=== PATIENT | male | born 1975 | race Caucasian/White ===

== ENCOUNTER 2017-06-17 18:20 | Emergency (ER) | payer OTHER ==
[2017-06-17 18:40] VITALS: BP 122/76; PULSE 84; TEMP 98.6; O2SAT 98
[2017-06-17] MEDS ORDERED: Lidocaine 2% Inj (20ml) INFIL ONE (19:59)
--- NOTE | 2017-06-17 19:59 | C.PDOC ---
History Of Present Illness Patient reports 1 week history of swollen painful mass to the right axilla. Denies fever, drainage, or trauma. Time Seen by Provider: 06/17/17 19:26 Chief Complaint (Nursing): Abnormal Skin Integrity History Per: Patient History/Exam Limitations: no limitations Onset/Duration Of Symptoms: Days (1 week ), Persistent Current Symptoms Are (Timing): Still Present Location Of Injury: Right: Arm (axilla ) Quality Of Symptoms: Painful Severity: Mild Pain Scale Rating Of: 7 Past Medical History Reviewed: Historical Data, Nursing Documentation, Vital Signs Vital Signs: Last Vital Signs Temp 98.6 F 06/17/17 18:37 Pulse 84 06/17/17 18:37 Resp 20 06/17/17 22:10 BP 122/76 06/17/17 18:37 Pulse Ox 98 06/17/17 21:31 Family History: States: Unknown Family Hx - Social History Hx Tobacco Use: No Hx Alcohol Use: No Hx Substance Use: No - Immunization History Hx Tetanus Toxoid Vaccination: No Hx Influenza Vaccination: Yes Hx Pneumococcal Vaccination: No Review Of Systems Constitutional: Negative for: Fever, Chills Eyes: Negative for: Pain Musculoskeletal: Negative for: Arm Pain Skin: Positive for: Other (painful swollen mass to right axilla ) Neurological: Negative for: Weakness, Numbness Physical Exam - Physical Exam Appears: Non-toxic, No Acute Distress Skin: Warm, Dry, Other (4-5 cm area of swelling, erythema, tender, with positive fluctuance and induration. ) Head: Atraumatic, Normacephalic Eye(s): bilateral: Normal Inspection Oral Mucosa: Moist Neck: Normal ROM, Supple Chest: Symmetrical, No Deformity Cardiovascular: Rhythm Regular, No Murmur Extremity: Normal ROM, No Tenderness, Capillary Refill (good capillary refill, less than two seconds ), No Deformity, No Swelling Neurological/Psych: Oriented x3 ED Course And Treatment O2 Sat by Pulse Oximetry: 98 (room air ) Progress Note: Patient was given keflex and motrin. Following I & D, bactrim was applied. - Incision & Drainage Of Abscess Anesthesia: Lidocaine 2% Used During Procedure: Continuous Pulse Oximetry, Investment Specialist Prep Used: Sterile Water, Betadine Procedure: Incised W/Scalpel Blade#: (11), Drained Pus, Irrigated Cavity W/ Saline, Probed To Break Up Loculations, Packed W/Gauze, Cultures Obtained And Sent To Lab Disposition - Disposition Referrals: Mariya Godoy MD [Staff Provider] - Disposition: HOME/ ROUTINE Disposition Time: 21:28 Condition: GOOD Additional Instructions: Come back in 2 days for wound check and packing removal. Return if worsened. 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 - Scribe Statement The provider has reviewed the documentation as recorded by the Scribadarsh Mendoza All medical record entries made by the Rachelelibadarsh were at my direction and personally dictated by me. I have reviewed the chart and agree that the record accurately reflects my personal performance of the history, physical exam, medical decision making, and the department course for this patient. I have also personally directed, reviewed, and agree with the discharge instructions and disposition.
[2017-06-17] MEDS ORDERED: Lidocaine 2% Inj (20ml) ONE (20:05)
[2017-06-17] MEDS ORDERED: Tmp-Smz 800 mg-160 mg DS Tab PO STA (21:12)
[2017-06-17] MEDS ORDERED: Tmp-Smz 800 mg-160 mg DS Tab ONE (21:18)
[2017-06-17 22:11] VITALS: RESP 20
== END 2017-06-17 22:10 | disposition home or self-care (01) ==
LOC: C.ER 18:20
DX: L02.411 Cutaneous abscess of right axilla (principal)

== ENCOUNTER 2017-06-19 09:58 | Emergency (ER) | payer OTHER ==
[2017-06-19 10:07] VITALS: BP 109/71; PULSE 82; RESP 20; TEMP 98.5; O2SAT 100
--- NOTE | 2017-06-19 10:40 | C.PDOC ---
History Of Present Illness 42 year old male returns to ED for evaluation of a wound check to his right axilla. Patient had an abscess to the area and underwent incision and drainage procedure on 06/17. Patient states his pain has improved and he is taking antibiotics as prescribed. He denies fever, chills, drainage from the site. Time Seen by Provider: 06/19/17 10:38 Chief Complaint (Nursing): Wound Check History Per: Patient History/Exam Limitations: no limitations Onset/Duration Of Symptoms: Days Ago (2) Current Symptoms Are (Timing): Better Quality Of Symptoms: denies: Draining Additional History Per: Patient Past Medical History Reviewed: Historical Data, Nursing Documentation, Vital Signs Vital Signs: Last Vital Signs Temp 98.5 F 06/19/17 10:05 Pulse 82 06/19/17 10:05 Resp 20 06/19/17 10:05 BP 109/71 06/19/17 10:05 Pulse Ox 100 06/19/17 11:04 - Medical History PMH: No Chronic Diseases Surgical History: No Surg Hx Family History: States: Unknown Family Hx - Social History Hx Tobacco Use: No Hx Alcohol Use: No Hx Substance Use: No - Immunization History Hx Tetanus Toxoid Vaccination: No Hx Influenza Vaccination: Yes Hx Pneumococcal Vaccination: No Review Of Systems Constitutional: Negative for: Fever, Chills Skin: Positive for: Other (wound check s/p incision and drainage from right axillary region. denies discharge from site ) Physical Exam - Physical Exam Appears: Non-toxic, No Acute Distress Skin: Normal Color, Warm, Dry, Other (packing removed from right axillary region. no swelling, discharge, or erythema to area ) Extremity: Normal ROM, Capillary Refill (less than 2 seconds ) Neurological/Psych: Normal Speech, Normal Cognition ED Course And Treatment O2 Sat by Pulse Oximetry: 100 (on RA) Pulse Ox Interpretation: Normal Progress Note: Packing was removed. Area was cleaned with normal saline. Telpha [id number] adhesive island dressing applied to affected area. Patient tolerated well with very minimal bleeding. Patient's wound culture results from previous visit were reviewed; no abnormalities found in result. On reassessment, patient is resting comfortably, showing no signs of distress and is stable for discharge. Patient is advised to continue taking antibiotics as prescribed and follow up with his PMD within 1-2 days for further evaluation. Disposition - Disposition Disposition: HOME/ ROUTINE Disposition Time: :09 Condition: STABLE Additional Instructions: Follow up with PMD within 1-2 days. Return to Ed if feel worse. 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 - Scribe Statement The provider has reviewed the documentation as recorded by the Scribe (Marisa Buckley) All medical record entries made by the Scribe were at my direction and personally dictated by me. I have reviewed the chart and agree that the record accurately reflects my personal performance of the history, physical exam, medical decision making, and the department course for this patient. I have also personally directed, reviewed, and agree with the discharge instructions and disposition.
== END 2017-06-19 11:26 | disposition home or self-care (01) ==
LOC: C.ER 09:58
DX: Z48.00 Encounter for change or removal of nonsurgical wound dressing (principal)

== ENCOUNTER 2018-03-23 01:24 | Emergency (ER) | payer OTHER ==
[2018-03-23 01:25] VITALS: BMI 19.1
[2018-03-23] MEDS ORDERED: Sodium Chloride 0.9% 500 ML IV ONE ×2 (01:50→01:58)
[2018-03-23 01:59] LABS: BASO # 0.1 K/uL (0.0-0.2); BASO % 0.8 % (0.0-2.0); EOS # 0.2 K/uL (0.0-0.7); EOS % 2.2 % (0.0-4.0); HEMOGLOBIN 13.8 g/dL (12.0-18.0); LYMPH # 2.6 K/uL (1.0-4.3); LYMPH % 31.3 % (20.0-40.0); MEAN CORPUSCULAR HEMOGLOBIN 30.1 pg (27.0-31.0); MEAN CORPUSCULAR HGB CONC 34.5 g/dL (33.0-37.0); MEAN PLATELET VOLUME 7.9 fL (7.2-11.7); MONO # 0.9 K/uL (0.0-0.8); MONO % 11.2 % (0.0-10.0); NEUT # 4.5 K/uL (1.8-7.0); NEUT % 54.5 % (50.0-75.0); RBC 4.61 Mil/uL (4.40-5.90); RED CELL DISTRIBUTION WIDTH 14.3 % (11.5-14.5); WHITE BLOOD COUNT 8.3 K/uL (4.8-10.8)
[2018-03-23 02:11] LABS: ALB/GLOB RATIO 1.2 (1.0-2.1); ALBUMIN 3.9 g/dL (3.5-5.0); ALT/SGPT 21 U/L (21-72); AST/SGOT 20 U/L (17-59); BLOOD UREA NITROGEN 16 mg/dL (9-20); GFR AFRICAN-AMERICAN > 60; GFR NON-AFRICAN AMERICAN > 60
--- NOTE | 2018-03-23 02:23 | C.PDOC ---
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 Patient is aslo c/o headache since earlier today as well. Patient denies fever, chills, nausea, vomit, diarrhea, dysuria, hematuria, genital pain. Time Seen by Provider: 03/23/18 01:43 Chief Complaint (Nursing): Abdominal Pain History Per: Patient History/Exam Limitations: no limitations Onset/Duration Of Symptoms: Days Current Symptoms Are (Timing): Still Present Location Of Pain/Discomfort: LLQ Radiation Of Pain To:: None Quality Of Discomfort: "Pain" Associated Symptoms: denies: Nausea, Vomiting, Diarrhea Exacerbating Factors: None Alleviating Factors: None Recent travel outside of the [place]: No Additional History Per: Patient Past Medical History Reviewed: Historical Data, Nursing Documentation, Vital Signs Vital Signs: Last Vital Signs Temp 97.7 F 03/23/18 01:30 Pulse 65 03/23/18 04:38 Resp 16 03/23/18 04:38 BP 115/71 03/23/18 04:38 Pulse Ox 99 03/23/18 06:36 - Medical History PMH: No Chronic Diseases Surgical History: No Surg Hx Family History: States: Unknown Family Hx - Social History Hx Tobacco Use: No Hx Alcohol Use: No Hx Substance Use: No - Immunization History Hx Tetanus Toxoid Vaccination: No Hx Influenza Vaccination: Yes Hx Pneumococcal Vaccination: No Review Of Systems Constitutional: Negative for: Fever, Chills Cardiovascular: Negative for: Chest Pain, Palpitations Respiratory: Negative for: Shortness of Breath Gastrointestinal: Positive for: Abdominal Pain. Negative for: Nausea, Vomiting , Diarrhea Genitourinary: Negative for: Dysuria, Hematuria Musculoskeletal: Negative for: Back Pain Skin: Negative for: Rash Physical Exam - Physical Exam Appears: Non-toxic, No Acute Distress Skin: Normal Color, Warm, Dry Head: Atraumatic, Normacephalic Eye(s): bilateral: Normal Inspection Oral Mucosa: Moist Neck: Normal ROM, Supple Chest: Symmetrical Cardiovascular: Rhythm Regular Respiratory: Normal Breath Sounds, No Rales, No Rhonchi, No Wheezing Gastrointestinal/Abdominal: Soft, Tenderness (minimal LLQ), No Guarding Back: No CVA Tenderness Extremity: Normal ROM, No Tenderness, No Swelling Neurological/Psych: Oriented x3, Normal Speech Gait: Steady ED Course And Treatment - Laboratory Results Result Diagrams: 03/23/18 01:56 03/23/18 01:56 O2 Sat by Pulse Oximetry: 99 (ON RA) Pulse Ox Interpretation: Normal - CT Scan/US CT abd/pelvis Other Rad Studies (CT/US): Read By Radiologist, Radiology Report Reviewed CT/US Interpretation: EXAM: CT Abdomen and Pelvis Without Intravenous Contrast. CLINICAL HISTORY: 43 years old, male; Pain; Abdominal pain; Localized; Left lower quadrant (llq); Additional info: Llq. pain, hematuria. TECHNIQUE: Axial computed tomography images of the abdomen and pelvis without intravenous contrast. All CT. scans at this facility use at least one of these dose optimization techniques: automated exposure. control; mA and/or kV adjustment per patient size (includes targeted exams where dose is matched to. clinical indication); or iterative reconstruction. Coronal and sagittal reformatted images were created and reviewed. COMPARISON: No relevant prior studies available. FINDINGS: Lung bases: Unremarkable. No mass. No consolidation. ABDOMEN: Liver: Unremarkable. Gallbladder and bile ducts: Not visualized. Pancreas: Unremarkable. No ductal dilation. Spleen: Unremarkable. No splenomegaly. Adrenals: Unremarkable. No mass. Kidneys and ureters: There are multiple bilateral collecting system calcifications. Mild left hydronephrosis hydroureter secondary to 2 mm stone in the left bladder base. Stomach and bowel: Unremarkable. No obstruction. No mucosal thickening. PELVIS : Appendix: No findings to suggest acute appendicitis. Normal appendix. Bladder: Unremarkable. No stones. ABDOMEN and PELVIS: Intraperitoneal space: Unremarkable. No free air. No significant fluid collection. Bones/joints: No acute fracture. No dislocation. Soft tissues: Unremarkable. Vasculature: Unremarkable. No abdominal aortic aneurysm. Lymph nodes: Unremarkable. No enlarged lymph nodes. IMPRESSION: Mild left hydronephrosis hydroureter secondary to 2 mm stone in the left bladder base. Thank you for allowing us to participate in the care of your patient. Dictated and Authenticated by: Dorothy De La Cruz MD. 03/23/2018 5:54 AM Eastern Time ([place] & [place]). Pt is sleeping comfortably in ED in no painful distress, VSS. Labs and Abd CT d/w pt. pt unerstands plan of treatment and follow up as well as return precautiions. Pt will follow up with Progress Note: Plan: - Labs. - Abdomen X-Ray. - IV fluids. - Toradol 30 mg IVP. Pain recurred after CT- toradol IV again repeated. - UA Reevaluation Time: 06:29 Reassessment Condition: Improved Disposition Counseled Patient/Family Regarding: Diagnosis, Need For Followup, Rx Given - Disposition Referrals: Amauri Pickard MD [Staff Provider] - Disposition: HOME/ ROUTINE Disposition Time: 06:30 Condition: STABLE Additional Instructions: Please increase PO fluids Take meds as directed Follow up with Urologist- call for appointment Return to ER if worse Prescriptions: Ibuprofen [Motrin] 600 mg PO Q6H #24 tab Tamsulosin [Flomax] 0.4 mg PO DAILY #7 cap Instructions: Renal Colic (DC) Forms: [employer] (Belarusian), Work Excuse Print Language: HEBREW - Clinical Impression Clinical Impression: Renal colic on left side - 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 - Scribe Statement The provider has reviewed the documentation as recorded by the Scribe Luis Farmer All medical record entries made by the Scribe were at my direction and personally dictated by me. I have reviewed the chart and agree that the record accurately reflects my personal performance of the history, physical exam, medical decision making, and the department course for this patient. I have also personally directed, reviewed, and agree with the discharge instructions and disposition.
[2018-03-23 03:14] LABS: SQUAMOUS EPITHIAL < 1 /hpf (0-5); URINE BILIRUBIN NEGATIVE (NEGATIVE); URINE BLOOD 3+ (NEGATIVE); URINE CLARITY Hazy (Clear); URINE COLOR Yellow (YELLOW); URINE GLUCOSE (UA) NORMAL (Normal); URINE LEUKOCYTE ESTERASE NEG Leu/uL (Negative); URINE PROTEIN NEGATIVE (NEGATIVE); URINE UROBILINOGEN NORMAL mg/dL (0.2-1.0)
[2018-03-23 06:51] VITALS: BP 115/75; PULSE 64; RESP 18; TEMP 97.6
[2018-03-23 07:20] VITALS: O2SAT 99
--- NOTE | 2018-03-23 09:27 | RAD ---
HISTORY: Abdominal pain COMPARISON: No comparison made with radiographs of the abdomen 09/05/2015 FINDINGS: BOWEL: Normal. No obstruction. No free air. BONES: Normal. OTHER FINDINGS: Note made of several small calcific densities overlying the inferior true pelvis likely representing calcified phleboliths however the possibility of a urinary bladder or UVJ calculus cannot excluded. IMPRESSION: No evidence of acute mechanical bowel obstruction. . Note made of several small calcific densities overlying the inferior true pelvis likely representing calcified phleboliths however the possibility of a urinary bladder or UVJ calculus cannot excluded.
--- NOTE | 2018-03-23 11:33 | CT ---
PROCEDURE: CT abdomen pelvis dated 03/23/2018. HISTORY: LLQ pain, hematuria COMPARISON: Comparison made with prior CT scan of the abdomen and pelvis dated 12/23/2017 TECHNIQUE: Contiguous axial images of the abdomen and pelvis performed without oral or intravenous contrast material. Additional 2D sagittal coronal reformats generated. Radiation dose: Total exam DLP = 334.69 mGy-cm. This CT exam was performed using one or more of the following dose reduction techniques: Automated exposure control, adjustment of the mA and/or kV according to patient size, and/or use of iterative reconstruction technique. FINDINGS: LOWER THORAX: Heart size normal. No significant pericardial effusion. There is a very tiny hiatal hernia. Lung bases clear. No infiltrate effusion or basilar pneumothorax. LIVER: Unremarkable. No gross lesion or ductal dilatation. GALLBLADDER AND BILE DUCTS: Not visualized and presumably is contracted as there are no metallic clips in the gallbladder fossa. Gallbladder was present on the prior exam. . Clinical correlation recommended. PANCREAS: Unremarkable. No mass. No ductal dilatation. SPLEEN: Unremarkable. No splenomegaly. ADRENALS: No adrenal lesions. . KIDNEYS AND URETERS: Kidneys demonstrate relatively symmetric size. There are punctate calcifications seen in the upper mid lower pole collecting system right kidney. At least 1 punctate calcification seen in lower pole left kidney with what may represent another early punctate calcification upper pole. . Small approximately 2.8 mm calculus left UVJ region presumably within the intramural bladder portion of the ureter with mild left-sided hydronephrosis. BLADDER: Urinary bladder is incompletely distended which presumably accounts for thick-walled appearance. . Muscular hypertrophy may contribute as well. No definitive intraluminal urinary bladder calculi not withstanding the aforementioned left UVJ 2.8 mm calculus. REPRODUCTIVE: Prostate gland measures approximately 4.3 cm transverse dimension. Prostatic calcification present APPENDIX: No acute appendicitis. . BOWEL: Unremarkable. No obstruction. No gross mural thickening. PERITONEUM: Unremarkable. No fluid collection. No free air. Small fat containing umbilical hernia. LYMPH NODES: Unremarkable. No enlarged lymph nodes. VASCULATURE: Unremarkable. No aortic aneurysm. BONES: . Re- demonstrated minor chronic appearing anterior stature loss T12 segment and to a lesser T11 and T10 segments. . Mild multilevel degenerative spondylosis. OTHER FINDINGS: None. IMPRESSION: Bilateral punctate nephrolithiasis. There is a small approximately 2.8 mm calculus in the left UVJ with mild left-sided hydronephrosis. Gallbladder is not visualized on this exam and may be contracted. Clinical correlation recommended.
== END 2018-03-23 06:53 | disposition home or self-care (01) ==
LOC: C.ER 01:24
DX: N13.2 Hydronephrosis with renal and ureteral calculous obstruction (principal)
CPT/HCPCS: 74019; 74176; 80053; 81001; 83690; 85025; 96374; 96376; 99285; J1885; J7040

== ENCOUNTER 2018-08-04 13:25 | Inpatient (IN) | payer OTHER ==
--- NOTE | 2018-08-04 13:27 | C.PDOC ---
History Of Present Illness 43 year old male with a history of asthma and mitral valve prolapse was sent to the ED from the clinic for evaluation of chest pain. The patient presented to the clinic today for a routine follow-up and has been complaining of chest pain for two weeks. Current chest pain has been present since this morning. Denies fever, nausea, vomiting, and any other associated symptoms. CODE HEART ACTIVATED- 1:37pm. Clinic EKG: --STEMI II, III avF --PEAK V3 V4 Time Seen by Provider: 08/04/18 13:26 History/Exam Limitations: no limitations Onset/Duration Of Symptoms: Hrs Current Symptoms Are (Timing): Still Present Past Medical History Reviewed: Historical Data, Nursing Documentation, Vital Signs Family History: States: Unknown Family Hx - Social History Hx Tobacco Use: No Hx Alcohol Use: No Hx Substance Use: No - Immunization History Hx Tetanus Toxoid Vaccination: No Hx Influenza Vaccination: Yes Hx Pneumococcal Vaccination: No Review Of Systems Except As Marked, All Systems Reviewed And Found Negative. Constitutional: Negative for: Fever Cardiovascular: Positive for: Chest Pain Gastrointestinal: Negative for: Nausea, Vomiting Physical Exam - Physical Exam Appears: Non-toxic Skin: Normal Color, Warm, Dry Head: Atraumatic, Normacephalic Eye(s): bilateral: Normal Inspection Oral Mucosa: Moist Neck: Normal ROM, Supple Chest: Symmetrical, No Deformity Cardiovascular: Rhythm Regular, No Murmur, Other (NARD.) Respiratory: Normal Breath Sounds, No Rales, No Rhonchi, No Wheezing Gastrointestinal/Abdominal: Normal Exam, Soft, No Tenderness Neurological/Psych: Oriented x3, Normal Speech, Normal Motor, Normal Sensation, Normal Reflexes ED Course And Treatment - Laboratory Results Result Diagrams: 08/04/18 13:37 08/04/18 13:37 ECG Rhythm: Sinus Rhythm Interpretation Of ECG: limited by motion artifact. Rate From EC O2 Sat by Pulse Oximetry: 100 (RA) Pulse Ox Interpretation: Normal - Other Rad CXR X-Ray: Viewed By Me, Read By Radiologist Interpretation: FINDINGS: Two left-sided defibrillator pads project over the chest/upper abdomen. LUNGS: No focal consolidation. Please note that chest x- ray has limited sensitivity for the detection of pulmonary masses. PLEURA: No significant pleural effusion identified. No definite pneumothorax . CARDIOVASCULAR: Heart size appears within normal limits. No significant atherosclerotic calcification present. OSSEOUS STRUCTURES: No acute osseous abnormality identified. VISUALIZED UPPER ABDOMEN: Unremarkable. OTHER FINDING S: None. IMPRESSION: No focal consolidation. Two external defibrillator pads as above. Progress - Re-Evaluation Re-evaluation Note: 08/04/18 13:26 CODE HEART ACTIVATED D/W DR PEREZ CODE HEART WILL EVAL 08/04/18 13:[address] PEREZ D/W DR ROWAN, ADMIT TO TELE - Data Reviewed Data Reviewed: Lab, Diagnostic imaging, EKG, Old records - Critical Care Citical Care: Excluding Proc Time Critical Care Time: 90 minutes Medical Decision Making Medical Decision Making: Plan: -EKG. -CXR. Disposition Counseled Patient/Family Regarding: Studies Performed, Diagnosis - Disposition Disposition: HOSPITALIZED Disposition Time: 13:36 Condition: SERIOUS - POA Present On Arrival: None - Clinical Impression Clinical Impression: Unstable angina - Scribe Statement The provider has reviewed the documentation as recorded by the Scribe (Paula Haile) Provider Attestation: All medical record entries made by the Scribe were at my direction and personally dictated by me. I have reviewed the chart and agree that the record accurately reflects my personal performance of the history, physical exam, medical decision making, and the department course for this patient. I have also personally directed, reviewed, and agree with the discharge instructions and disposition.
[2018-08-04] MEDS ORDERED: Aspirin 325 mg EC Tablets PO STA (13:28)
[2018-08-04] MEDS ORDERED: Heparin25000 units/250ml 1/2NS 25,000 UNITS/250 ML BAG IV STA (13:28)
[2018-08-04 13:32] VITALS: BMI 17.9
[2018-08-04 13:45] LABS: BASO # 0.1 K/uL (0.0-0.2); BASO % 0.7 % (0.0-2.0); EOS # 0.2 K/uL (0.0-0.7); EOS % 2.4 % (0.0-4.0); HEMOGLOBIN 16.3 g/dL (12.0-18.0); LYMPH # 2.6 K/uL (1.0-4.3); LYMPH % 28.3 % (20.0-40.0); MEAN CELL VOLUME 89.2 fL (80.0-94.0); MEAN CORPUSCULAR HEMOGLOBIN 30.1 pg (27.0-31.0); MEAN CORPUSCULAR HGB CONC 33.7 g/dL (33.0-37.0); MEAN PLATELET VOLUME 7.7 fL (7.2-11.7); MONO # 0.9 K/uL (0.0-0.8); MONO % 9.2 % (0.0-10.0); NEUT # 5.5 K/uL (1.8-7.0); NEUT % 59.4 % (50.0-75.0); NRBC % 0.1 % (0.0-2.0); RBC 5.41 Mil/uL (4.40-5.90); WHITE BLOOD COUNT 9.2 K/uL (4.8-10.8)
[2018-08-04 13:52] LABS: INR 1.3; PROTHROMBIN TIME 13.7 SECONDS (9.7-12.2)
[2018-08-04 14:03] LABS: ALB/GLOB RATIO 1.2 (1.0-2.1); ALBUMIN 4.6 g/dL (3.5-5.0); ALT/SGPT 20 U/L (21-72); AST/SGOT 46 U/L (17-59); BLOOD UREA NITROGEN 20 mg/dL (9-20); CALCIUM 9.9 mg/dl (8.6-10.4); GFR NON-AFRICAN AMERICAN > 60
--- NOTE | 2018-08-04 14:08 | RAD ---
HISTORY: chest pain COMPARISON: Chest x-ray performed 08/24/15, CT chest without IV contrast performed 01/13/18 TECHNIQUE: Chest, one view. FINDINGS: Two left-sided defibrillator pads project over the chest/upper abdomen. LUNGS: No focal consolidation. Please note that chest x-ray has limited sensitivity for the detection of pulmonary masses. PLEURA: No significant pleural effusion identified. No definite pneumothorax . CARDIOVASCULAR: Heart size appears within normal limits. No significant atherosclerotic calcification present. OSSEOUS STRUCTURES: No acute osseous abnormality identified. VISUALIZED UPPER ABDOMEN: Unremarkable. OTHER FINDINGS: None. IMPRESSION: No focal consolidation. Two external defibrillator pads as above.
[2018-08-04] MEDS ORDERED: Aspirin 325 mg EC Tablets PO ONE (14:15)
[2018-08-04] MEDS ORDERED: Albuterol-Ipratrop 3 mg / 0.5 (3 ml) UD INH PRN (14:38)
--- NOTE | 2018-08-04 14:53 | CP.PCM.HP ---
<Xavier Ozuna - Last Filed: 08/04/18 16:12> History of Present Illness - History of Present Illness History of Present Illness: This is a 43 yo male, originally from [place], with past medical history of mild persistent asthma and mitral valve prolapse, presenting today with chief complaint of chest pain. Patient was a walk in this morning at [facility] and was sent upstairs to ER due to concern for unstable angina/ACS. Initially code heart was activated but EKG changes were subsequently determined to be early repolarization. Pt reports chest pain, substernal, starting at 930 am today. Pt reports he got out of bed at this time and was sitting up in bed when the pain started. He says this has happened before 2 weeks ago, but could not go into detail about the time course of this previous event. Pt currently denies chest pain. Says the pain is a "burning" sensation. Says the pain was made worse by going upstairs. Pt reports that after feeling the pain, he showered and then went into the clinic. He says up until it went away, it was not getting any better or worse Pt personally denied taking any medications to me, but medical records indicate he has been prescribed a ventolin inhaler and flovent recently. Pt denies any cardiac cath and says that he did have a stress test "a long time ago" but at a different hospital. Pt denies PND, orthopnea, dizziness, shortness of breath, urinary symptoms, or any other associated sx. PMH: Mild persistent asthma, mitral valve prolapse. Pt did have an echo in 11/10 showing normal LV fx with some diastolic dx along with MR, TR, mild pulmonary HTN and prolapse of anterior and posterior leaflets. PSH: denies Medications: ventolin, flovent (non compliant) FH: Father- - seventies- leukemia Mother- (pt could not elaborate on her medical conditions) Pt could not tell me if anybody in the family has had an IN or heart disease Allergies: NKDA Social hx: Denies smoking hx. Denies secondhand smoke exposure. Denies drinking. Denies drug use. Born in [place]. 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 Lives alone. Insurance: 100 [facility] Advance directive: none Proxy: none Code status: full code Present on Admission - Present on Admission Any Indicators Present on Admission: No Review of Systems - Constitutional Constitutional: absent: Chills, Fever - EENT Eyes: absent: Blurred Vision, Change in Vision Nose/Mouth/Throat: absent: Epistaxis, Nasal Congestion, Nasal Discharge - Cardiovascular Cardiovascular: Chest Pain, Chest Pain at Rest. absent: Dyspnea - Respiratory Respiratory: absent: Dyspnea - Gastrointestinal Gastrointestinal: absent: Abdominal Pain, Vomiting - Genitourinary Genitourinary: absent: Change in Urinary Stream, Difficulty Urinating - Musculoskeletal Musculoskeletal: absent: Numbness, Tingling - Integumentary Integumentary: absent: Acne, Bleeding Lesions - Neurological Neurological: absent: Syncope, Weakness - Psychiatric Psychiatric: absent: Visual Hallucinations, Tactile Hallucinations - Endocrine Endocrine: absent: Palpitations, Polyuria - Hematologic/Lymphatic Hematologic: absent: Easy Bleeding, Easy Bruising Past Patient History - Infectious Disease Hx of Infectious Diseases: None - Tetanus Immunizations Tetanus Immunization: Unknown - Past Medical History & Family History Past Medical History?: Yes - Past Social History Smoking Status: Never Smoked Chewing Tobacco Use: No Cigar Use: No Alcohol: None Drugs: Denies Home Situation {Lives}: Alone Domestic Violence: Negative - CARDIAC Hx Cardiac Disorders: Yes Other/Comment: "leaky mitral valve" - PSYCHIATRIC Hx Substance Use: No - SURGICAL HISTORY Hx Surgeries: No - ANESTHESIA Hx Anesthesia: No Meds Allergies/Adverse Reactions: Allergies Allergy/AdvReac Type Severity Reaction Status Date / Time No Known Allergies Allergy Verified 08/04/18 13:27 Physical Exam - Constitutional Appears: Non-toxic, No Acute Distress - Head Exam Head Exam: ATRAUMATIC, NORMAL INSPECTION, NORMOCEPHALIC - Eye Exam Eye Exam: EOMI - ENT Exam ENT Exam: Mucous Membranes Moist - Neck Exam Neck exam: Positive for: Full Rom, Normal Inspection - Respiratory Exam Respiratory Exam: NORMAL BREATHING PATTERN. absent: Respiratory Distress - Cardiovascular Exam Cardiovascular Exam: REGULAR RHYTHM, +S1, +S2 - GI/Abdominal Exam GI & Abdominal Exam: Normal Bowel Sounds, Soft. absent: Tenderness - Extremities Exam Extremities exam: Positive for: full ROM, normal inspection - Neurological Exam Neurological exam: Alert, CN II-XII Intact, Oriented x3 - Psychiatric Exam Psychiatric exam: Flat Affect - Skin Skin Exam: Dry, Intact, Normal Color, Warm Additional comments: positive tinea corporis on back Results - Vital Signs Recent Vital Signs: Last Vital Signs Temp 98 F 08/04/18 13:28 Pulse 86 08/04/18 14:06 Resp 16 08/04/18 14:06 BP 128/92 H 08/04/18 14:06 Pulse Ox 100 08/04/18 14:13 - Labs Result Diagrams: 08/04/18 13:37 08/04/18 13:37 Labs: Laboratory Results - last 24 hr 08/04/18 08/04/18 08/04/18 13:34 13:37 13:37 WBC 9.2 RBC 5.41 Hgb 16.3 Hct 48.3 MCV 89.2 MCH 30.1 MCHC 33.7 RDW 14.0 Plt Count 227 MPV 7.7 Neut % (Auto) 59.4 Lymph % (Auto) 28.3 [place] % (Auto) 9.2 Eos % (Auto) 2.4 Baso % (Auto) 0.7 Neut # (Auto) 5.5 Lymph # (Auto) 2.6 [place] # (Auto) 0.9 H Eos # (Auto) 0.2 Baso # (Auto) 0.1 PT 13.7 H INR 1.3 APTT 34 Sodium Potassium Chloride Carbon Dioxide Anion Gap BUN Creatinine Est GFR ( Amer) Est GFR (Non-Af Amer) POC Glucose (mg/dL) 90 Random Glucose Calcium Total Bilirubin AST ALT Alkaline Phosphatase Troponin I Total Protein Albumin Globulin Albumin/Globulin Ratio Blood Type Antibody Screen 08/04/18 08/04/18 08/04/18 13:37 13:37 13:37 WBC RBC Hgb Hct MCV MCH MCHC RDW Plt Count MPV Neut % (Auto) Lymph % (Auto) [place] % (Auto) Eos % (Auto) Baso % (Auto) Neut # (Auto) Lymph # (Auto) [place] # (Auto) Eos # (Auto) Baso # (Auto) PT INR APTT Sodium 139 Potassium 4.4 Chloride 102 Carbon Dioxide 29 Anion Gap 13 BUN 20 Creatinine 0.8 Est GFR ( Amer) > 60 Est GFR (Non-Af Amer) > 60 POC Glucose (mg/dL) Random Glucose 102 Calcium 9.9 Total Bilirubin 1.2 AST 46 ALT 20 L Alkaline Phosphatase 63 Troponin I < 0.0120 Total Protein 8.6 H Albumin 4.6 Globulin 4.0 H Albumin/Globulin Ratio 1.2 Blood Type O POSITIVE Antibody Screen Negative Assessment & Plan - Assessment and Plan (Free Text) Assessment: This is a 43 yo male with 1. Chest pain, R/O ACS -troponins x 3 -1st troponin negative -repeat ekg at trop 2 and 3 as well -initial ekg apparently showed early repolarization but code heart was activated and then cancelled by Dr. Barrett. -CXR shows no active disease -repeat CXR PA/lateral -echo pending -HGB a1c; previous a1C was 5.6 in 10/2017 -TSH -urine drug screen -O2 as needed -asa 81 mg PO daily -lovenox 40 mg sc daily -crestor 2.5 mg po daily -admit to tele floor -carefully monitor vital signs -heart healthy diet -lipid panel -PT/INR pending -cardiology consult. Dr. Barrett. recs appreciated. 2. Elevated blood pressure -continue to monitor 3. Hx of asthma -continue to monitor -duonebs PRN 4. hx of mitral valve prolapse -echo pending 5. hx of mitral regurgiation -echo pending 6. hx of tricuspid regurgitation -echo pending 7. hx of pulmonary hypertension -echo pending -mild on last echo -continue to monitor 8. tinea corporis -rx given in clinic for nizoral shampoo -will give on discharge -will give ketoconazole cream while in hospital. 8. GI/DVT ppx -GI: not indicated -DVT ppx: lovenox 40 mg sc daily discussed with Dr. Parra. <Katy Parra V - Last Filed: 08/07/18 21:32> Results - Vital Signs Recent Vital Signs: Last Vital Signs Temp 98.0 F 08/06/18 15:00 Pulse 99 H 08/06/18 16:44 Resp 20 08/06/18 15:00 BP 117/80 08/06/18 15:00 Pulse Ox 99 08/06/18 15:00 - Labs Result Diagrams: 08/06/18 06:46 08/06/18 06:46 Attending/Attestation - Attestation I have personally seen and examined this patient.: Yes I have fully participated in the care of the patient.: Yes I have reviewed all pertinent clinical information: Yes Notes (Text): This is late computer entry for 08/04/18. Patient seen, examined, and case discussed with emergency medical services coordinator. Patient seen at time of Code Heart. Patient reports he had routine appointment at the clinic today but reported he had chest pain this morning. Patient was sent from the clinic with abnormal EKG concerning for possible ST elevation IN. Patient was seen and elevated by graphite pan drier tender, Dr Barrett concrete saw operator, code heart was cancelled. patient does not meet criteria for code heart. EKG shows early repolarization not STEMI. Patient's troponin is negative. Discussed case with cardio, including echo, and stress test in the morning and check cardiac enzymes. Patient has known history of asthma, which he takes inhalers. Patient has fungal infection on the back, started on antifungal. Case discussed with resident, cardiology, as well as resident doctor in the clinic, and Dr Salazar, clinical laboratory technician.
[2018-08-04 15:11] LABS: CK-MB 0.25 ng/mL (0.0-3.38)
[2018-08-04 15:25] LABS: BARBITURATES, UR NEGATIVE (NEGATIVE); BENZODIAZEPINES, UR NEGATIVE (NEGATIVE); OPIATES, UR NEGATIVE (NEGATIVE); PHENCYCLIDINE, UR NEGATIVE (NEGATIVE)
[2018-08-04] MEDS: Rosuvastatin Calcium 2.5 mg Tab PO SCH (21:17)
[2018-08-05 07:06] LABS: BASO # 0.1 K/uL (0.0-0.2); BASO % 0.6 % (0.0-2.0); EOS # 0.4 K/uL (0.0-0.7); EOS % 5.1 % (0.0-4.0); HEMOGLOBIN 15.6 g/dL (12.0-18.0); LYMPH # 2.3 K/uL (1.0-4.3); LYMPH % 27.5 % (20.0-40.0); MEAN CELL VOLUME 88.3 fL (80.0-94.0); MEAN CORPUSCULAR HEMOGLOBIN 30.8 pg (27.0-31.0); MEAN CORPUSCULAR HGB CONC 34.8 g/dL (33.0-37.0); MEAN PLATELET VOLUME 7.9 fL (7.2-11.7); MONO # 0.9 K/uL (0.0-0.8); MONO % 10.2 % (0.0-10.0); NEUT # 4.8 K/uL (1.8-7.0); NEUT % 56.6 % (50.0-75.0); RBC 5.07 Mil/uL (4.40-5.90); RED CELL DISTRIBUTION WIDTH 14.4 % (11.5-14.5); WHITE BLOOD COUNT 8.5 K/uL (4.8-10.8)
[2018-08-05 08:04] LABS: ALB/GLOB RATIO 1.1 (1.0-2.1); ALT/SGPT 19 U/L (21-72); AST/SGOT 25 U/L (17-59); BLOOD UREA NITROGEN 23 mg/dL (9-20); CALCIUM 9.8 mg/dl (8.6-10.4); GFR NON-AFRICAN AMERICAN > 60
[2018-08-05] MEDS: Enoxaparin 40 mg Syringe SC SCH (09:39)
--- NOTE | 2018-08-05 11:55 | CP.PCM.CON ---
<Archie Edwards - Last Filed: 08/05/18 13:29> History of Present Illness - History of Present Illness History of Present Illness: Archie Edwards, PGY-[address] Barrett, Cardiology Mr. 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 Patient arrived for a clinic appointment on site earlier in the day yesterday and was sent to ER due to concern for unstable angina/ACS based on EKG performed at clinic. Initially code heart was activated but EKG changes were subsequently determined to be early repolarization so code heart was cancelled. Patient reports burning, substernal chest pain that began 2 weeks ago and occurs on a relatively regular basis per patient. Patient reports sitting in bed without activity when pain worsened. Patient could not describe the time course around previous events, but states the burning sensation occurs even at rest. Patient reports that after initially feeling the burning, he went to the clinic. Patient did not take any medications at home. Patient denies any cardiac catheterization but states he underwent a stress test at a different hospital with unknown results. Patient denies shortness of breath currently, paroxysmal nocturnal dyspnea, orthopnea, dizziness, changes in urinary or bowel habits and abdominal pain. Past Patient History - Infectious Disease Hx of Infectious Diseases: None - Tetanus Immunizations Tetanus Immunization: Unknown - Past Medical History & Family History Past Medical History?: Yes - Past Social History Smoking Status: Never Smoked Chewing Tobacco Use: No Cigar Use: No Alcohol: None Drugs: Denies Home Situation {Lives}: Alone Domestic Violence: Negative - CARDIAC Hx Cardiac Disorders: Yes Other/Comment: "leaky mitral valve" - PULMONARY Hx Respiratory Disorders: Yes Hx Asthma: Yes - NEUROLOGICAL Hx Neurological Disorder: No - HEENT Hx HEENT Problems: No - RENAL Hx Chronic Kidney Disease: No - ENDOCRINE/METABOLIC Hx Endocrine Disorders: No - HEMATOLOGICAL/ONCOLOGICAL Hx Blood Disorders: No - INTEGUMENTARY Hx Dermatological Problems: No - MUSCULOSKELETAL/RHEUMATOLOGICAL Hx Musculoskeletal Disorders: No Hx Falls: No - GASTROINTESTINAL Hx Gastrointestinal Disorders: No - GENITOURINARY/GYNECOLOGICAL Hx Genitourinary Disorders: No - PSYCHIATRIC Hx Substance Use: No - SURGICAL HISTORY Hx Surgeries: No - ANESTHESIA Hx Anesthesia: No Meds Allergies/Adverse Reactions: Allergies Allergy/AdvReac Type Severity Reaction Status Date / Time No Known Allergies Allergy Verified 08/04/18 13:27 - Medications Medications: Current Medications Albuterol/Ipratropium (Duoneb 3 Mg/0.5 Mg (3 Ml) Ud) 3 ml INH RQ6 PRN PRN Reason: Shortness of Breath Aspirin (Aspirin Chewable) 81 mg PO DAILY [facility] Last Admin: 08/05/18 09:23 Dose: 81 mg Enoxaparin Sodium (Lovenox) 40 mg SC DAILY [facility] Last Admin: 08/05/18 09:39 Dose: Not Given Heparin Sodium (Porcine) (Heparin) 5,000 units IV ONCE STA Stop: 08/04/18 13:29 Last Admin: 08/04/18 14:04 Dose: 5,000 units Influenza Virus Vaccine (Fluzone Quad [id number]) 60 mcg IM .ONCE ONE Stop: 08/06/18 10:01 Ketoconazole (Nizoral) 0 gm TOP BID [facility] Last Admin: 08/05/18 09:23 Dose: 1 applic Pneumococcal Polyvalent Vaccine (Pneumovax 23 Vaccine) 0.5 ml IM .ONCE ONE Stop: 08/06/18 12:01 Rosuvastatin Calcium (Crestor) 2.5 mg PO [facility] Last Admin: 08/04/18 21:17 Dose: 2.5 mg Physical Exam - Constitutional Appears: Well, Non-toxic, No Acute Distress - Head Exam Head Exam: ATRAUMATIC, NORMAL INSPECTION, NORMOCEPHALIC - Eye Exam Eye Exam: EOMI, Normal appearance Pupil Exam: PERRL - ENT Exam ENT Exam: Mucous Membranes Moist - Respiratory Exam Respiratory Exam: Clear to Auscultation Bilateral, NORMAL BREATHING PATTERN. absent: Chest Wall Tenderness, Rales, Rhonchi, Wheezes - Cardiovascular Exam Cardiovascular Exam: +S1, +S2, Systolic Murmur - GI/Abdominal Exam GI & Abdominal Exam: Soft. absent: Distended, Guarding, Tenderness - Extremities Exam Extremities exam: Positive for: pedal pulses present. Negative for: pedal edema - Skin Skin Exam: Dry, Intact, Warm Results - Vital Signs Recent Vital Signs: Last Vital Signs Temp 97.7 F 08/05/18 07:00 Pulse 70 08/05/18 07:00 Resp 20 08/05/18 07:00 BP 124/79 08/05/18 07:00 Pulse Ox 97 08/05/18 07:00 - Labs Result Diagrams: 08/05/18 06:53 08/05/18 06:53 Labs: Laboratory Results - last 24 hr 08/04/18 08/04/18 08/04/18 13:34 13:37 13:37 WBC 9.2 RBC 5.41 Hgb 16.3 Hct 48.3 MCV 89.2 MCH 30.1 MCHC 33.7 RDW 14.0 Plt Count 227 MPV 7.7 Neut % (Auto) 59.4 Lymph % (Auto) 28.3 [place] % (Auto) 9.2 Eos % (Auto) 2.4 Baso % (Auto) 0.7 Neut # (Auto) 5.5 Lymph # (Auto) 2.6 [place] # (Auto) 0.9 H Eos # (Auto) 0.2 Baso # (Auto) 0.1 PT 13.7 H INR 1.3 APTT 34 Sodium Potassium Chloride Carbon Dioxide Anion Gap BUN Creatinine Est GFR ( Amer) Est GFR (Non-Af Amer) POC Glucose (mg/dL) 90 Random Glucose Hemoglobin A1c Calcium Phosphorus Magnesium Total Bilirubin AST ALT Alkaline Phosphatase Total Creatine Kinase CK-MB (Mass) Troponin I Total Protein Albumin Globulin Albumin/Globulin Ratio Urine Opiates Screen Urine Methadone Screen Ur Barbiturates Screen Ur Phencyclidine Scrn Ur Amphetamines Screen U Benzodiazepines Scrn U Oth Cocaine Metabols U Cannabinoids Screen Blood Type Antibody Screen 08/04/18 08/04/18 08/04/18 13:37 13:37 13:37 WBC RBC Hgb Hct MCV MCH MCHC RDW Plt Count MPV Neut % (Auto) Lymph % (Auto) [place] % (Auto) Eos % (Auto) Baso % (Auto) Neut # (Auto) Lymph # (Auto) [place] # (Auto) Eos # (Auto) Baso # (Auto) PT INR APTT Sodium 139 Potassium 4.4 Chloride 102 Carbon Dioxide 29 Anion Gap 13 BUN 20 Creatinine 0.8 Est GFR ( Amer) > 60 Est GFR (Non-Af Amer) > 60 POC Glucose (mg/dL) Random Glucose 102 Hemoglobin A1c Calcium 9.9 Phosphorus Magnesium Total Bilirubin 1.2 AST 46 ALT 20 L Alkaline Phosphatase 63 Total Creatine Kinase 37 L CK-MB (Mass) 0.25 Troponin I < 0.0120 < 0.0120 Total Protein 8.6 H Albumin 4.6 Globulin 4.0 H Albumin/Globulin Ratio 1.2 Urine Opiates Screen Urine Methadone Screen Ur Barbiturates Screen Ur Phencyclidine Scrn Ur Amphetamines Screen U Benzodiazepines Scrn U Oth Cocaine Metabols U Cannabinoids Screen Blood Type O POSITIVE Antibody Screen Negative 08/04/18 08/04/18 08/04/18 14:57 17:13 17:17 WBC RBC Hgb Hct MCV MCH MCHC RDW Plt Count MPV Neut % (Auto) Lymph % (Auto) [place] % (Auto) Eos % (Auto) Baso % (Auto) Neut # (Auto) Lymph # (Auto) [place] # (Auto) Eos # (Auto) Baso # (Auto) PT INR APTT Sodium Potassium Chloride Carbon Dioxide Anion Gap BUN Creatinine Est GFR ( Amer) Est GFR (Non-Af Amer) POC Glucose (mg/dL) 71 77 Random Glucose Hemoglobin A1c Calcium Phosphorus Magnesium Total Bilirubin AST ALT Alkaline Phosphatase Total Creatine Kinase CK-MB (Mass) Troponin I Total Protein Albumin Globulin Albumin/Globulin Ratio Urine Opiates Screen Negative Urine Methadone Screen Negative Ur Barbiturates Screen Negative Ur Phencyclidine Scrn Negative Ur Amphetamines Screen Negative U Benzodiazepines Scrn Negative U Oth Cocaine Metabols Negative U Cannabinoids Screen Negative Blood Type Antibody Screen 08/04/18 08/05/18 08/05/18 19:39 01:37 06:20 WBC RBC Hgb Hct MCV MCH MCHC RDW Plt Count MPV Neut % (Auto) Lymph % (Auto) [place] % (Auto) Eos % (Auto) Baso % (Auto) Neut # (Auto) Lymph # (Auto) [place] # (Auto) Eos # (Auto) Baso # (Auto) PT INR APTT Sodium Potassium Chloride Carbon Dioxide Anion Gap BUN Creatinine Est GFR ( Amer) Est GFR (Non-Af Amer) POC Glucose (mg/dL) 79 Random Glucose Hemoglobin A1c Calcium Phosphorus Magnesium Total Bilirubin AST ALT Alkaline Phosphatase Total Creatine Kinase CK-MB (Mass) Troponin I < 0.0120 < 0.0120 Total Protein Albumin Globulin Albumin/Globulin Ratio Urine Opiates Screen Urine Methadone Screen Ur Barbiturates Screen Ur Phencyclidine Scrn Ur Amphetamines Screen U Benzodiazepines Scrn U Oth Cocaine Metabols U Cannabinoids Screen Blood Type Antibody Screen 08/05/18 08/05/18 08/05/18 06:53 06:53 06:53 WBC 8.5 RBC 5.07 Hgb 15.6 Hct 44.8 MCV 88.3 MCH 30.8 MCHC 34.8 RDW 14.4 Plt Count 211 MPV 7.9 Neut % (Auto) 56.6 Lymph % (Auto) 27.5 [place] % (Auto) 10.2 H Eos % (Auto) 5.1 H Baso % (Auto) 0.6 Neut # (Auto) 4.8 Lymph # (Auto) 2.3 [place] # (Auto) 0.9 H Eos # (Auto) 0.4 Baso # (Auto) 0.1 PT INR APTT Sodium 138 Potassium 4.2 Chloride 105 Carbon Dioxide 26 Anion Gap 12 BUN 23 H Creatinine 0.9 Est GFR ( Amer) > 60 Est GFR (Non-Af Amer) > 60 POC Glucose (mg/dL) Random Glucose 91 Hemoglobin A1c 5.5 Calcium 9.8 Phosphorus 3.8 Magnesium 2.0 Total Bilirubin 1.1 AST 25 ALT 19 L Alkaline Phosphatase 52 Total Creatine Kinase CK-MB (Mass) Troponin I Total Protein 7.7 Albumin 4.0 Globulin 3.7 Albumin/Globulin Ratio 1.1 Urine Opiates Screen Urine Methadone Screen Ur Barbiturates Screen Ur Phencyclidine Scrn Ur Amphetamines Screen U Benzodiazepines Scrn U Oth Cocaine Metabols U Cannabinoids Screen Blood Type Antibody Screen Assessment & Plan - Assessment and Plan (Free Text) Assessment: 43 M with PMHx of MVP and intermittent asthma who presents with burning substernal chest pain x 2 weeks. Unstable Angina EKG initially showed early repolarization, no need for urgent cath at that time Pt received ASA 325, Heparin and Brillinta 180 mg PO in ED Trops neg x3 Rosuvastatin 2.5 mg, ASA 81 mg PO F/u repeat EKG f/u repeat echo f/u nuclear stress test to be performed f/u BNP [facility]HD Patient seen, case reviewed with Dr. Barrett. Further recs per Dr. Arnold Edwards, PGY-1 <Woody Barrett - Last Filed: 08/06/18 14:23> Meds - Medications Medications: Current Medications Albuterol/Ipratropium (Duoneb 3 Mg/0.5 Mg (3 Ml) Ud) 3 ml INH RQ6 PRN PRN Reason: Shortness of Breath Aspirin (Aspirin Chewable) 81 mg PO DAILY [facility] Last Admin: 08/06/18 09:42 Dose: 81 mg Enoxaparin Sodium (Lovenox) 40 mg SC DAILY [facility] Last Admin: 08/06/18 09:40 Dose: Not Given Heparin Sodium (Porcine) (Heparin) 5,000 units IV ONCE STA Stop: 08/04/18 13:29 Last Admin: 08/04/18 14:04 Dose: 5,000 units Ibuprofen (Motrin Tab) 600 mg PO TID PRN PRN Reason: Headache Last Admin: 08/06/18 11:30 Dose: 600 mg Ketoconazole (Nizoral) 0 gm TOP BID [facility] Last Admin: 08/06/18 09:39 Dose: 1 applic Rosuvastatin Calcium (Crestor) 2.5 mg PO HS [facility] Last Admin: 08/05/18 22:23 Dose: Not Given Results - Vital Signs Recent Vital Signs: Last Vital Signs Temp 97.5 F L 08/06/18 07:00 Pulse 67 08/06/18 09:25 Resp 20 08/06/18 07:00 BP 111/73 08/06/18 07:00 Pulse Ox 99 08/06/18 07:00 - Labs Result Diagrams: 08/06/18 06:46 08/06/18 06:46 Labs: Laboratory Results - last 24 hr 08/06/18 08/06/18 08/06/18 06:01 06:46 06:46 WBC 8.3 RBC 5.08 Hgb 15.3 Hct 45.0 MCV 88.5 MCH 30.1 MCHC 34.0 RDW 14.4 Plt Count 206 MPV 7.7 Neut % (Auto) 51.0 Lymph % (Auto) 32.2 [place] % (Auto) 11.3 H Eos % (Auto) 4.6 H Baso % (Auto) 0.9 Neut # (Auto) 4.2 Lymph # (Auto) 2.7 [place] # (Auto) 0.9 H Eos # (Auto) 0.4 Baso # (Auto) 0.1 ESR 3 Sodium 138 Potassium 4.4 Chloride 104 Carbon Dioxide 26 Anion Gap 12 BUN 25 H Creatinine 1.0 Est GFR ( Amer) > 60 Est GFR (Non-Af Amer) > 60 POC Glucose (mg/dL) 86 Random Glucose 96 Calcium 9.6 Phosphorus 3.6 Magnesium 2.0 Total Bilirubin 1.2 AST 20 ALT 17 L Alkaline Phosphatase 49 Total Protein 7.5 Albumin 3.9 Globulin 3.6 Albumin/Globulin Ratio 1.1 Triglycerides 54 D Cholesterol 163 LDL Cholesterol Direct 87 HDL Cholesterol 57 08/06/18 11:04 WBC RBC Hgb Hct MCV MCH MCHC RDW Plt Count MPV Neut % (Auto) Lymph % (Auto) [place] % (Auto) Eos % (Auto) Baso % (Auto) Neut # (Auto) Lymph # (Auto) [place] # (Auto) Eos # (Auto) Baso # (Auto) ESR Sodium Potassium Chloride Carbon Dioxide Anion Gap BUN Creatinine Est GFR ( Amer) Est GFR (Non-Af Amer) POC Glucose (mg/dL) 86 Random Glucose Calcium Phosphorus Magnesium Total Bilirubin AST ALT Alkaline Phosphatase Total Protein Albumin Globulin Albumin/Globulin Ratio Triglycerides Cholesterol LDL Cholesterol Direct HDL Cholesterol Attending/Attestation - Attestation I have personally seen and examined this patient.: Yes I have fully participated in the care of the patient.: Yes I have reviewed all pertinent clinical information: Yes
[2018-08-05 13:40] LABS: B-TYPE NATRIURETIC PEPTIDE 68.1 pg/mL (0-450)
--- NOTE | 2018-08-05 14:49 | CP.PCM.PN ---
<Rosie Suarez - Last Filed: 08/05/18 14:46> Subjective - Date & Time of Evaluation Date of Evaluation: 08/05/18 Time of Evaluation: 09:50 - Subjective Subjective: PGY-1 Medicine Progress Note for Dr. Pavon Patient was seen and examined today at bedside in no acute distress. Nurse reports no overnight events. Patient has no new complaints, but would to leave as soon as possible. He is still currently experiencing tightness in his chest with shortness of breath on exertion. Denies n/v/c/d, headache, dizziness, issues with urinating or BM. Objective - Vital Signs/Intake and Output Vital Signs (last 24 hours): Temp Pulse Resp BP Pulse Ox 97.7 F 70 20 124/79 97 08/05/18 07:00 08/05/18 07:00 08/05/18 07:00 08/05/18 07:00 08/05/18 07:00 Intake and Output: 08/05/18 08/05/18 06:59 18:59 Intake Total 168 Balance 168 - Medications Medications: Current Medications Albuterol/Ipratropium (Duoneb 3 Mg/0.5 Mg (3 Ml) Ud) 3 ml INH RQ6 PRN PRN Reason: Shortness of Breath Aspirin (Aspirin Chewable) 81 mg PO DAILY [facility] Last Admin: 08/05/18 09:23 Dose: 81 mg Enoxaparin Sodium (Lovenox) 40 mg SC DAILY [facility] Last Admin: 08/05/18 09:39 Dose: Not Given Heparin Sodium (Porcine) (Heparin) 5,000 units IV ONCE STA Stop: 08/04/18 13:29 Last Admin: 08/04/18 14:04 Dose: 5,000 units Influenza Virus Vaccine (Fluzone Quad [id number]) 60 mcg IM .ONCE ONE Stop: 08/06/18 10:01 Ketoconazole (Nizoral) 0 gm TOP BID [facility] Last Admin: 08/05/18 09:23 Dose: 1 applic Pneumococcal Polyvalent Vaccine (Pneumovax 23 Vaccine) 0.5 ml IM .ONCE ONE Stop: 08/06/18 12:01 Rosuvastatin Calcium (Crestor) 2.5 mg PO HS [facility] Last Admin: 08/04/18 21:17 Dose: 2.5 mg - Labs Labs: 08/05/18 06:53 08/05/18 06:53 PT 13.7 SECONDS (9.7-12.2) H 08/04/18 13:37 INR 1.3 08/04/18 13:37 APTT 34 SECONDS (21-34) 08/04/18 13:37 - Constitutional Appears: Non-toxic, No Acute Distress, Cachectic - Head Exam Head Exam: ATRAUMATIC, NORMOCEPHALIC - Eye Exam Eye Exam: EOMI, PERRL - Respiratory Exam Respiratory Exam: Clear to Ausculation Bilateral, NORMAL BREATHING PATTERN. absent: Rales, Rhonchi, Wheezes, Stridor - Cardiovascular Exam Cardiovascular Exam: Irregular Rhythm, +S1, +S2. absent: REGULAR RHYTHM - GI/Abdominal Exam GI & Abdominal Exam: Soft, Normal Bowel Sounds. absent: Tenderness - Extremities Exam Extremities Exam: Normal Capillary Refill. absent: Calf Tenderness Additional comments: IV access in L hand peripheral pulses palpable bilaterally (radial, PT) - Back Exam Additional comments: tinea corporis on back, less erythema than yesterday - Neurological Exam Neurological Exam: Alert, Awake, Normal Gait, Oriented x3 - Skin Skin Exam: Dry, Warm Additional comments: tinea corporis on back Assessment and Plan - Assessment and Plan (Free Text) Assessment: 43yoM PMH MVP and intermittent asthma who presents with burning substernal chest pain x 2 weeks. Plan: Unstable Angina - Trop and EKG neg x4 - Code Heart activated off initial EKG which showed early repolarization -> cancelled by Dr. Barrett - CXR (08/04): no active disease - ECHO (08/04): pending read - Lexiscan Stress test (08/05): pending read - Hgb A1c 5.5 - UDS negative - PT 13.7, INR 1.3, aPTT 34 - f/u lipid panel - O2 via NC prn - ASA 81mg po daily - Crestor 2.5mg po daily - Monitor on tele - Cardio consulted: Dr. Barrett - help appreciated Asthma - Duonebs q6 prn Heart valvular abnormalities: MVP, MR, TR -> pulmonary hypertension - ECHO (08/04): pending read - continue to monitor Tinea corporis - Ketoconazole cream while admitted - Briseida xie script already sent to pharmacy for discharge Elevated Blood Pressure - stable - 124/79 today - Continue to monitor vitals PPx DVT: Lovenox 40mg sc daily GI: not indicated Diet: HHD Patient has Marfanoid characteristics; pending ECHO, consider genetic testing for Marfan's Fibrillin-1 gene d/w Dr. Savanah Suarez PGY-1 <Christopher Pavon - Last Filed: 08/06/18 07:52> Objective - Vital Signs/Intake and Output Vital Signs (last 24 hours): Temp Pulse Resp BP Pulse Ox 97.8 F 71 20 108/67 96 08/06/18 05:02 08/06/18 05:02 08/06/18 05:02 08/06/18 05:02 08/06/18 05:02 - Medications Medications: Current Medications Albuterol/Ipratropium (Duoneb 3 Mg/0.5 Mg (3 Ml) Ud) 3 ml INH RQ6 PRN PRN Reason: Shortness of Breath Aspirin (Aspirin Chewable) 81 mg PO DAILY [facility] Last Admin: 08/05/18 09:23 Dose: 81 mg Enoxaparin Sodium (Lovenox) 40 mg SC DAILY [facility] Last Admin: 08/05/18 09:39 Dose: Not Given Heparin Sodium (Porcine) (Heparin) 5,000 units IV ONCE STA Stop: 08/04/18 13:29 Last Admin: 08/04/18 14:04 Dose: 5,000 units Ibuprofen (Motrin Tab) 600 mg PO TID PRN PRN Reason: Headache Last Admin: 08/05/18 20:34 Dose: 600 mg Influenza Virus Vaccine (Fluzone Quad [id number]) 60 mcg IM .ONCE ONE Stop: 08/06/18 10:01 Ketoconazole (Nizoral) 0 gm TOP BID [facility] Last Admin: 08/05/18 17:55 Dose: 1 applic Pneumococcal Polyvalent Vaccine (Pneumovax 23 Vaccine) 0.5 ml IM .ONCE ONE Stop: 08/06/18 12:01 Rosuvastatin Calcium (Crestor) 2.5 mg PO HS [facility] Last Admin: 08/05/18 22:23 Dose: Not Given - Labs Labs: 08/06/18 06:46 08/06/18 06:46 PT 13.7 SECONDS (9.7-12.2) H 08/04/18 13:37 INR 1.3 08/04/18 13:37 APTT 34 SECONDS (21-34) 08/04/18 13:37 Attending/Attestation - Attestation I have personally seen and examined this patient.: Yes I have fully participated in the care of the patient.: Yes I have reviewed all pertinent clinical information, including history, physical exam and plan: Yes Notes (Text): 08/06/18 07:50 Medical attending: Patient was seen and examined by me. Agree with the above note by the medical technologist prn The patient was not in any acute distress when I came and saw the patient The patient has undergone echo and also lexiscan stress test, result pending at this moment Christopher Pavon
--- NOTE | 2018-08-05 16:30 | CARD ---
APPROVED REPORT Date of service: 08/05/2018 EXAM: Two-dimensional and M-mode echocardiogram with Doppler and color Doppler. INDICATION Chest Pain Mitral Valve Prolapse 2D DIMENSIONS IVSd0.9 (0.7-1.1cm)Aortic Root (2D)3.3 (2.0-3.7cm) LVDd4.5 (3.9-5.9cm)PWd0.9 (0.7-1.1cm) LA Verzhl37 (18-58mL)LVDs2.6 (2.5-4.0cm) FS (%) 42.6 %LVEF (%)73.7 (>50%) IVC0.00 cm M-Mode DIMENSIONS Left Atrium (MM)3.55 (2.5-4.0cm)IVSd0.73 (0.7-1.1cm) Aortic Root2.76 (2.2-3.7cm)LVDd5.86 (4.0-5.6cm) Aortic Cusp Exc.2.28 (1.5-2.0cm)PWd0.76 (0.7-1.1cm) FS (%) 45 %LVDs3.25 (2.0-3.8cm) TAPSE16.92 cmLVEF (%)75 (>50%) Mitral Valve MV E Tkvaqqbi97.1cm/sMV E Peak Gr.107mmHgMV A Kvoobavm95.2cm/s MV E Mean Gr.80mmHgE/A ratio1.5 TDI Lateral E' Peak V12.16cm/sMedial E' Peak V8.35cm/sE/Lateral E'6.1 E/Medial E'8.9 Tricuspid Valve TR Peak Rcsaikpa099qa/sTR Peak Gr.99ufCwUCLK11kaFb LEFT VENTRICLE The left ventricle is normal size. There is normal left ventricular wall thickness. The left ventricular systolic function is normal. There is normal LV segmental wall motion. The left ventricular diastolic function is normal. RIGHT VENTRICLE The right ventricle is normal size. There is normal right ventricular wall thickness. The right ventricular systolic function is normal. ATRIA The left atrium size is normal. The right atrium size is normal. The interatrial septum is intact with no evidence for an atrial septal defect. AORTIC VALVE The aortic valve is normal in structure. No aortic regurgitation is present. There is no aortic valvular stenosis. MITRAL VALVE A borderline to mild mitral valve prolapse is present. In some views the anterior leaflet shows some slight prolapse but, in other views the is borderline to mild prolapse of the posterior leaflet. Mild mitral regurgitation with two different jets seen in some vies. TRICUSPID VALVE The tricuspid valve is normal in structure. There is mild to moderate tricuspid regurgitation. Right ventricular systolic pressure is estimated at - 42 mmHg. There is mild pulmonary hypertension. PULMONIC VALVE The pulmonary valve is normal in structure. GREAT VESSELS The aortic root is normal in size. The IVC is normal in size and collapses >50% with inspiration. PERICARDIAL EFFUSION There is no pericardial effusion. <Conclusion> Normal bi-ventricular function A borderline to mild mitral valve prolapse is present. In some views the anterior leaflet shows some slight prolapse but, in other views the is borderline to mild prolapse of the posterior leaflet. Mild mitral regurgitation with two different jets seen in some views. There is mild to moderate tricuspid regurgitation. Right ventricular systolic pressure is estimated at - 42 mmHg compatible with mild pulmonary hypertension. There is no pericardial effusion.
[2018-08-05] MEDS: Rosuvastatin Calcium 2.5 mg Tab PO SCH ×2 (20:35→22:23)
[2018-08-06 01:47] VITALS: RESP 20
--- NOTE | 2018-08-06 04:26 | CARD ---
APPROVED REPORT Date of service: 08/05/2018 Protocol: ULISSES Test Type: NUCLEAR STRESS Test Indications: CHEST PAIN Target HR: 179 bpm Resting ECG: normal, early repolarization Resting Heart Rate: 96 bpm Resting Blood Pressure: 128/80mmHg submaximum (85%): 152 bpm TEST SUMMARY EMYLMSGAUDSOP16:01..1.090/.0. PRETESTHYPERV.02:580.00.01.081/.0. PRETESTWARM-UP03:160.10.01.198636/80.0. EXERCISESTAGE 103:001.710.04.6102/.1. EXERCISESTAGE 203:002.512.07.0127/.1. EXERCISESTAGE 301:563.148.212.6744/.0. ELZHAYJV03:540.00.01.0931769/80.0. POST EXERCISE Reason for Termination: Fatigue Target HR: No Max HR: 162 bpm 90% of Maximum Predicted HR: 179 bpm Exercise duration: 07:56 min:sec, 3 Stage Exercise capacity: 10.1METs Max Blood Pressure: 140/80mmHg Blood Pressure response to exercise: normal resting BP - appropriate response Heart Rate response to exercise: appropriate Chest Pain: No, none Angina index: 0 Arrhythmia: No, none ST Change: No, none Deviation: 0 mm EXAM: Myocardial Perfusion REST/STRESS Imaging Protocol The imaging protocol used to acquire images was Rest Tc-99m/stress Tc-99m 1 day Rest Spect myocardial perfusion imaging was performed in supine position 45 minutes following the injection of 10.5 mCi of Tc-99 Myoview. Gated Stress Spect was performed 45 minutes after intravenous 27.8 mCi Tc-99 Myoview injection. The images were gated to evaluate regional wall motion and calculate ventricular ejection fraction.Images were reconstructed using backfilter projection method in short horizontal and verticle long axis. Spect slices were generated. RESTING DATA HYH926.36hfHB6.00L/min ESV37.00mlMyocardial Krgj602.00g Av. Heart Rate75.00bpm EF68.00% STRESS DATA GND602.30owOE4.40L/min ESV49.00mlMyocardial Vjhm733.00g EF59.00% Regional WT score at stress:0.00 Regional WM score at stress:0.00 Summed WT score at stress:0.00 Av. Heart Rate76.00bpmSummed WM score at stress:4.00 Study quality was fair. Left Ventricular size was Normal at Rest and Stress. Lung uptake was Normal. Left Ventricular ejection fraction is 59%. LV Perfusion 2 The rest and stress images show normal perfusion. LV Perf. Quant 17 Seg. SSS0.00 17 Seg. SRS0.00 17 Seg. SDS0.00 Stress Defect Extent (% LAD)0.00Rest Defect Extent (% LAD)0.00Rev. Defect Extent (% LAD)0.00 Stress Defect Extent (% LCX)0.00Rest Defect Extent (% LCX)0.00Rev. Defect Extent (% LCX)0.00 Stress Defect Extent (% RCA)0.00Rest Defect Extent (% RCA)0.00Rev. Defect Extent (% RCA)0.00 Stress Defect Extent (% YVROSE)0.00Rest Defect Extent (% YVROSE)0.00Rev. Defect Extent (% YVROSE)0.00 Other Information Quality:Average Overall Exercise Capacity: Good IMPRESSION Normal Myocardial Perfusion exercise stress study Conclusion 1. - Normal myocardial perfusion study with no evidence of ischemia 2. - Normal LVEF
[2018-08-06 07:10] LABS: ALB/GLOB RATIO 1.1 (1.0-2.1); ALBUMIN 3.9 g/dL (3.5-5.0); ALT/SGPT 17 U/L (21-72); AST/SGOT 20 U/L (17-59); BLOOD UREA NITROGEN 25 mg/dL (9-20); CALCIUM 9.6 mg/dl (8.6-10.4); GFR NON-AFRICAN AMERICAN > 60; HDL CHOLESTEROL 57 mg/dL (30-70)
[2018-08-06 07:14] LABS: BASO # 0.1 K/uL (0.0-0.2); BASO % 0.9 % (0.0-2.0); EOS # 0.4 K/uL (0.0-0.7); EOS % 4.6 % (0.0-4.0); HEMOGLOBIN 15.3 g/dL (12.0-18.0); LYMPH # 2.7 K/uL (1.0-4.3); LYMPH % 32.2 % (20.0-40.0); MEAN CELL VOLUME 88.5 fL (80.0-94.0); MEAN CORPUSCULAR HEMOGLOBIN 30.1 pg (27.0-31.0); MEAN PLATELET VOLUME 7.7 fL (7.2-11.7); MONO # 0.9 K/uL (0.0-0.8); MONO % 11.3 % (0.0-10.0); NEUT # 4.2 K/uL (1.8-7.0); NRBC % 0.1 % (0.0-2.0); RBC 5.08 Mil/uL (4.40-5.90); RED CELL DISTRIBUTION WIDTH 14.4 % (11.5-14.5); WHITE BLOOD COUNT 8.3 K/uL (4.8-10.8)
[2018-08-06 07:21] LABS: LDL CHOLESTEROL 87 mg/dL (0-129)
--- NOTE | 2018-08-06 07:45 | CP.PCM.PN ---
<Archie Edwards - Last Filed: 08/06/18 08:48> Subjective - Date & Time of Evaluation Date of Evaluation: 08/06/18 Time of Evaluation: 07:50 - Subjective Subjective: Archie Edwards PGY-[address] Barrett, Cardiology Patient seen and evaluated at bedside. No acute events reported overnight. Patient reports residual throbbing chest pain rated as 3/10 that comes and goes without shortness of breath, palpitations, dizziness, headache. Patient wonders when he can go home. Objective - Vital Signs/Intake and Output Vital Signs (last 24 hours): Temp Pulse Resp BP Pulse Ox 97.8 F 71 20 108/67 96 08/06/18 05:02 08/06/18 05:02 08/06/18 05:02 08/06/18 05:02 08/06/18 05:02 - Medications Medications: Current Medications Albuterol/Ipratropium (Duoneb 3 Mg/0.5 Mg (3 Ml) Ud) 3 ml INH RQ6 PRN PRN Reason: Shortness of Breath Aspirin (Aspirin Chewable) 81 mg PO DAILY [facility] Last Admin: 08/05/18 09:23 Dose: 81 mg Enoxaparin Sodium (Lovenox) 40 mg SC DAILY [facility] Last Admin: 08/05/18 09:39 Dose: Not Given Heparin Sodium (Porcine) (Heparin) 5,000 units IV ONCE STA Stop: 08/04/18 13:29 Last Admin: 08/04/18 14:04 Dose: 5,000 units Ibuprofen (Motrin Tab) 600 mg PO TID PRN PRN Reason: Headache Last Admin: 08/05/18 20:34 Dose: 600 mg Influenza Virus Vaccine (Fluzone Quad [id number]) 60 mcg IM .ONCE ONE Stop: 08/06/18 10:01 Ketoconazole (Nizoral) 0 gm TOP BID [facility] Last Admin: 08/05/18 17:55 Dose: 1 applic Pneumococcal Polyvalent Vaccine (Pneumovax 23 Vaccine) 0.5 ml IM .ONCE ONE Stop: 08/06/18 12:01 Rosuvastatin Calcium (Crestor) 2.5 mg PO HS [facility] Last Admin: 08/05/18 22:23 Dose: Not Given - Labs Labs: 08/06/18 06:46 08/06/18 06:46 PT 13.7 SECONDS (9.7-12.2) H 08/04/18 13:37 INR 1.3 08/04/18 13:37 APTT 34 SECONDS (21-34) 08/04/18 13:37 - Additional Findings Additional findings: - Constitutional Appears: Well, Non-toxic, No Acute Distress - Head Exam Head Exam: ATRAUMATIC, NORMAL INSPECTION, NORMOCEPHALIC - Eye Exam Eye Exam: EOMI, Normal appearance Pupil Exam: PERRL - ENT Exam ENT Exam: Mucous Membranes Moist - Respiratory Exam Respiratory Exam: Clear to Auscultation Bilateral, NORMAL BREATHING PATTERN. absent: Chest Wall Tenderness, Rales, Rhonchi, Wheezes - Cardiovascular Exam Cardiovascular Exam: +S1, +S2, Systolic Murmur - GI/Abdominal Exam GI & Abdominal Exam: Soft. absent: Distended, Guarding, Tenderness - Extremities Exam Extremities exam: Positive for: pedal pulses present. Negative for: pedal edema - Skin Skin Exam: Dry, Intact, Warm Assessment and Plan - Assessment and Plan (Free Text) Assessment: Assessment: 43 M with PMHx of MVP and intermittent asthma who presents with burning substernal chest pain x 2 weeks. Unstable Angina EKG initially showed early repolarization, no need for urgent cath at this time Pt received ASA 325, Heparin and Brillinta 180 mg PO in ED Trops neg x4, BNP 68.1 Rosuvastatin 2.5 mg No evidence to suggest continuing Aspirin upon discharge Repeat echo 08/04: Mild MVP, mild MR, mild TR, mild pulm HTN Nuclear exercise stress test : normal with no evidence of ischemia, normal LVEF of 68% Can be discharged safely home on.. THIS IS A DRAFT Patient seen, case reviewed with Dr. Barrett. Further recs per Dr. Barrett. Archie Edwards, PGY-1 <Woody Barrett - Last Filed: 08/06/18 14:34> Objective - Vital Signs/Intake and Output Vital Signs (last 24 hours): Temp Pulse Resp BP Pulse Ox 97.5 F L 67 20 111/73 99 08/06/18 07:00 08/06/18 09:25 08/06/18 07:00 08/06/18 07:00 08/06/18 07:00 - Medications Medications: Current Medications Albuterol/Ipratropium (Duoneb 3 Mg/0.5 Mg (3 Ml) Ud) 3 ml INH RQ6 PRN PRN Reason: Shortness of Breath Aspirin (Aspirin Chewable) 81 mg PO DAILY [facility] Last Admin: 08/06/18 09:42 Dose: 81 mg Enoxaparin Sodium (Lovenox) 40 mg SC DAILY [facility] Last Admin: 08/06/18 09:40 Dose: Not Given Heparin Sodium (Porcine) (Heparin) 5,000 units IV ONCE STA Stop: 08/04/18 13:29 Last Admin: 08/04/18 14:04 Dose: 5,000 units Ibuprofen (Motrin Tab) 600 mg PO TID PRN PRN Reason: Headache Last Admin: 08/06/18 11:30 Dose: 600 mg Ketoconazole (Nizoral) 0 gm TOP BID [facility] Last Admin: 08/06/18 09:39 Dose: 1 applic Rosuvastatin Calcium (Crestor) 2.5 mg PO HS [facility] Last Admin: 08/05/18 22:23 Dose: Not Given - Labs Labs: 08/06/18 06:46 08/06/18 06:46 PT 13.7 SECONDS (9.7-12.2) H 08/04/18 13:37 INR 1.3 08/04/18 13:37 APTT 34 SECONDS (21-34) 08/04/18 13:37 Attending/Attestation - Attestation I have personally seen and examined this patient.: Yes I have fully participated in the care of the patient.: Yes I have reviewed all pertinent clinical information, including history, physical exam and plan: Yes Notes (Text): 08/06/18 14:26 exercise nuclear stress test normal EKG - early repolarization pattern
[2018-08-06 08:34] VITALS: O2SAT 99
[2018-08-06] MEDS: Enoxaparin 40 mg Syringe SC SCH (09:40)
[2018-08-06] MEDS ORDERED: Influenza Vaccine 60 MCG/0.5 ML SYR (3 yr & up) IM ONE (10:00)
[2018-08-06] MEDS ORDERED: Pneumococcal 23-Valent Vaccine IM ONE (12:00)
--- NOTE | 2018-08-06 12:29 | CARD ---
APPROVED REPORT Date of service: 08/05/2018 EKG Measurement Heart [id number] <Conclusion> Normal sinus rhythm with sinus arrhythmia ST elevation, probably due to early repolarization Borderline ECG
--- NOTE | 2018-08-06 15:23 | CP.PCM.DIS ---
<SuarezRosie Zohaib - Last Filed: 08/06/18 16:20> Provider - Provider Date of Admission: 08/04/18 13:36 Attending physician: Katy Parra DO Time Spent in preparation of Discharge (in minutes): 45 Diagnosis - Discharge Diagnosis (1) Unstable angina Status: Acute Hospital Course - Lab Results Lab Results: Most Recent Lab Values WBC 8.3 K/uL (4.8-10.8) 08/06/18 06:46 RBC 5.08 Mil/uL (4.40-5.90) 08/06/18 06:46 Hgb 15.3 g/dL (12.0-18.0) 08/06/18 06:46 Hct 45.0 % (35.0-51.0) 08/06/18 06:46 MCV 88.5 fL (80.0-94.0) 08/06/18 06:46 MCH 30.1 pg (27.0-31.0) 08/06/18 06:46 MCHC 34.0 g/dL (33.0-37.0) 08/06/18 06:46 RDW 14.4 % (11.5-14.5) 08/06/18 06:46 Plt Count 206 K/uL (130-400) 08/06/18 06:46 MPV 7.7 fL (7.2-11.7) 08/06/18 06:46 Neut % (Auto) 51.0 % (50.0-75.0) 08/06/18 06:46 Lymph % (Auto) 32.2 % (20.0-40.0) 08/06/18 06:46 Barnes % (Auto) 11.3 % (0.0-10.0) H 08/06/18 06:46 Eos % (Auto) 4.6 % (0.0-4.0) H 08/06/18 06:46 Baso % (Auto) 0.9 % (0.0-2.0) 08/06/18 06:46 Neut # (Auto) 4.2 K/uL (1.8-7.0) 08/06/18 06:46 Lymph # (Auto) 2.7 K/uL (1.0-4.3) 08/06/18 06:46 Barnes # (Auto) 0.9 K/uL (0.0-0.8) H 08/06/18 06:46 Eos # (Auto) 0.4 K/uL (0.0-0.7) 08/06/18 06:46 Baso # (Auto) 0.1 K/uL (0.0-0.2) 08/06/18 06:46 ESR 3 mm/hr (0-15) 08/06/18 06:46 PT 13.7 SECONDS (9.7-12.2) H 08/04/18 13:37 INR 1.3 08/04/18 13:37 APTT 34 SECONDS (21-34) 08/04/18 13:37 Sodium 138 mmol/L (132-148) 08/06/18 06:46 Potassium 4.4 mmol/L (3.6-5.2) 08/06/18 06:46 Chloride 104 mmol/L (98-107) 08/06/18 06:46 Carbon Dioxide 26 mmol/L (22-30) 08/06/18 06:46 Anion Gap 12 (10-20) 08/06/18 06:46 BUN 25 mg/dL (9-20) H 08/06/18 06:46 Creatinine 1.0 mg/dL (0.8-1.5) 08/06/18 06:46 Est GFR ( Amer) > 60 08/06/18 06:46 Est GFR (Non-Af Amer) > 60 08/06/18 06:46 POC Glucose (mg/dL) 86 mg/dL (65-110) 08/06/18 11:04 Random Glucose 96 mg/dL (75-110) 08/06/18 06:46 Hemoglobin A1c 5.5 % (4.2-6.5) 08/05/18 06:53 Calcium 9.6 mg/dl (8.6-10.4) 08/06/18 06:46 Phosphorus 3.6 mg/dL (2.5-4.5) 08/06/18 06:46 Magnesium 2.0 mg/dL (1.6-2.3) 08/06/18 06:46 Total Bilirubin 1.2 mg/dL (0.2-1.3) 08/06/18 06:46 AST 20 U/L (17-59) 08/06/18 06:46 ALT 17 U/L (21-72) L 08/06/18 06:46 Alkaline Phosphatase 49 U/L (38-126) 08/06/18 06:46 Total Creatine Kinase 37 U/L (55-170) L 08/04/18 13:37 CK-MB (Mass) 0.25 ng/mL (0.0-3.38) 08/04/18 13:37 Troponin I < 0.0120 ng/mL (0.00-0.120) 08/05/18 01:37 NT-Pro-B Natriuret Pep 68.1 pg/mL (0-450) 08/05/18 06:53 Total Protein 7.5 g/dL (6.3-8.3) 08/06/18 06:46 Albumin 3.9 g/dL (3.5-5.0) 08/06/18 06:46 Globulin 3.6 gm/dL (2.2-3.9) 08/06/18 06:46 Albumin/Globulin Ratio 1.1 (1.0-2.1) 08/06/18 06:46 Triglycerides 54 mg/dL (0-149) D 08/06/18 06:46 Cholesterol 163 mg/dL (0-199) 08/06/18 06:46 LDL Cholesterol Direct 87 mg/dL (0-129) 08/06/18 06:46 HDL Cholesterol 57 mg/dL (30-70) 08/06/18 06:46 Urine Opiates Screen Negative (NEGATIVE) 08/04/18 14:57 Urine Methadone Screen Negative (NEGATIVE) 08/04/18 14:57 Ur Barbiturates Screen Negative (NEGATIVE) 08/04/18 14:57 Ur Phencyclidine Scrn Negative (NEGATIVE) 08/04/18 14:57 Ur Amphetamines Screen Negative (NEGATIVE) 08/04/18 14:57 U Benzodiazepines Scrn Negative (NEGATIVE) 08/04/18 14:57 U Oth Cocaine Metabols Negative (NEGATIVE) 08/04/18 14:57 U Cannabinoids Screen Negative (NEGATIVE) 08/04/18 14:57 Blood Type O POSITIVE 08/04/18 13:37 Antibody Screen Negative 08/04/18 13:37 - Hospital Course Hospital Course: This is a 43 yo male, originally from [place], with past medical history of mild persistent asthma and mitral valve prolapse, presenting today with chief complaint of chest pain. Patient was a walk in this morning at [facility] and was sent upstairs to ER due to concern for unstable angina/ACS. Initially code heart was activated but EKG changes were subsequently determined to be early repolarization. Pt reports chest pain, substernal, starting at 930 am today. Pt reports he got out of bed at this time and was sitting up in bed when the pain started. He says this has happened before 2 weeks ago, but could not go into detail about the time course of this previous event. Pt currently denies chest pain. Says the pain is a "burning" sensation. Says the pain was made worse by going upstairs. Pt reports that after feeling the pain, he showered and then went into the clinic. He says up until it went away, it was not getting any better or worse Pt personally denied taking any medications to me, but medical records indicate he has been prescribed a ventolin inhaler and flovent recently. Pt denies any cardiac cath and says that he did have a stress test "a long time ago" but at a different hospital. Pt denies PND, orthopnea, dizziness, shortness of breath, urinary symptoms, or any other associated sx. Code Heart called in ED was cancelled by Dr. Barrett, railroad car repair supervisor. Repeat ECHO showed LVEF 65-75% with mitral valve prolapse, mild mitral regurgitation, mild tricuspid regurgitation, mild pulmonary hypertension. Nuclear stress test showed normal LVEF, normal myocardial perfusion study with no evidence of ischemia. ROMIs were negative x3. Patient is no longer complaining of ongoing chest pain and shortness of breath on exertion has improved. Primary Diagnosis: Unstable Angina, Mitral Valve Prolapse Patient is clear for discharge per Drs. Pavon and Arnold. For his tinea corporis, prescription for Nizoral cream has already been sent to his pharmacy by his PMD. Patient is to start HCTZ as directed: Hydrochlorothiazide 25mg by mouth once a day Patient is to follow up with the [facility] within two weeks to reconcile his medications. He MUST follow up with a superintendent fish hatchery to get ECHOs once a year to follow the progression of his mitral valve prolapse. If he is unable to see Dr. Barrett, he is to mention that and get a referral for the [facility] superintendent fish hatchery during his visit. If symptoms return of worsen, do not hesitate to return to the ED. Plan was discussed and agreed upon with patient. This is a summary of the hospital course. Please refer to the EMR for more details. - Date & Time of H&P Date of H&P: 08/06/18 Time of H&P: 11:50 Discharge Exam - Head Exam Head Exam: ATRAUMATIC, NORMOCEPHALIC - Eye Exam Eye Exam: EOMI, PERRL Pupil Exam: NORMAL ACCOMODATION - ENT Exam ENT Exam: Mucous Membranes Moist - Respiratory Exam Respiratory Exam: Clear to PA & Lateral, UNREMARKABLE. absent: Accessory Muscle Use, Rales, Rhonchi, Wheezes - Cardiovascular Exam Cardiovascular Exam: REGULAR RHYTHM, +S1, +S2, Systolic Murmur Additional comments: MVP, known - GI/Abdominal Exam GI & Abdominal Exam: Normal Bowel Sounds, Soft. absent: Tenderness - Extremities Exam Extremities exam: normal capillary refill, pedal pulses present Additional comments: IV in R arm to be removed prior to discharge - Neurological Exam Neurological exam: Alert, CN II-XII Intact, Normal Gait, Oriented x3 - Psychiatric Exam Psychiatric exam: Normal Affect, Normal Mood - Skin Skin Exam: Dry, Intact Discharge Plan - Discharge Medications Prescriptions: RX: hydroCHLOROthiazide [Hydrodiuril] 25 mg PO DAILY #30 tab - Follow Up Plan Condition: SERIOUS Disposition: HOME/ ROUTINE Instructions: Heart Healthy Diet, Angina (DC), Hydrochlorothiazide Additional Instructions: Patient is clear for discharge per Drs. Pavon and Arnold. For his tinea corporis, there is already Nizoral cream prescription at his pharmacy. Patient is to start HCTZ as directed: Hydrochlorothiazide 25mg by mouth once a day Patient is to follow up with the [facility] within two weeks to reconcile his medications. He MUST follow up with a superintendent fish hatchery to get ECHOs once a year to follow the progression of his mitral valve prolapse. If he is unable to see Dr. Barrett, he is to mention that and get a referral for the [facility] superintendent fish hatchery during his visit. If symptoms return of worsen, do not hesitate to return to the ED. Plan was discussed and agreed upon with patient. Referrals: [facility] at [facility] [Outside] Woody Barrett MD [Staff Provider] - Clinical Quality Measures - CQM - Heart Failure Ejection Fraction: 40 % or Greater <Christopher Pavon - Last Filed: 08/06/18 17:06> Provider - Provider Date of Admission: 08/04/18 13:36 Attending physician: Katy Parra DO [facility] Course - Lab Results Lab Results: Most Recent Lab Values WBC 8.3 K/uL (4.8-10.8) 08/06/18 06:46 RBC 5.08 Mil/uL (4.40-5.90) 08/06/18 06:46 Hgb 15.3 g/dL (12.0-18.0) 08/06/18 06:46 Hct 45.0 % (35.0-51.0) 08/06/18 06:46 MCV 88.5 fL (80.0-94.0) 08/06/18 06:46 MCH 30.1 pg (27.0-31.0) 08/06/18 06:46 MCHC 34.0 g/dL (33.0-37.0) 08/06/18 06:46 RDW 14.4 % (11.5-14.5) 08/06/18 06:46 Plt Count 206 K/uL (130-400) 08/06/18 06:46 MPV 7.7 fL (7.2-11.7) 08/06/18 06:46 Neut % (Auto) 51.0 % (50.0-75.0) 08/06/18 06:46 Lymph % (Auto) 32.2 % (20.0-40.0) 08/06/18 06:46 Barnes % (Auto) 11.3 % (0.0-10.0) H 08/06/18 06:46 Eos % (Auto) 4.6 % (0.0-4.0) H 08/06/18 06:46 Baso % (Auto) 0.9 % (0.0-2.0) 08/06/18 06:46 Neut # (Auto) 4.2 K/uL (1.8-7.0) 08/06/18 06:46 Lymph # (Auto) 2.7 K/uL (1.0-4.3) 08/06/18 06:46 Barnes # (Auto) 0.9 K/uL (0.0-0.8) H 08/06/18 06:46 Eos # (Auto) 0.4 K/uL (0.0-0.7) 08/06/18 06:46 Baso # (Auto) 0.1 K/uL (0.0-0.2) 08/06/18 06:46 ESR 3 mm/hr (0-15) 08/06/18 06:46 PT 13.7 SECONDS (9.7-12.2) H 08/04/18 13:37 INR 1.3 08/04/18 13:37 APTT 34 SECONDS (21-34) 08/04/18 13:37 Sodium 138 mmol/L (132-148) 08/06/18 06:46 Potassium 4.4 mmol/L (3.6-5.2) 08/06/18 06:46 Chloride 104 mmol/L (98-107) 08/06/18 06:46 Carbon Dioxide 26 mmol/L (22-30) 08/06/18 06:46 Anion Gap 12 (10-20) 08/06/18 06:46 BUN 25 mg/dL (9-20) H 08/06/18 06:46 Creatinine 1.0 mg/dL (0.8-1.5) 08/06/18 06:46 Est GFR ( Amer) > 60 08/06/18 06:46 Est GFR (Non-Af Amer) > 60 08/06/18 06:46 POC Glucose (mg/dL) 86 mg/dL (65-110) 08/06/18 11:04 Random Glucose 96 mg/dL (75-110) 08/06/18 06:46 Hemoglobin A1c 5.5 % (4.2-6.5) 08/05/18 06:53 Calcium 9.6 mg/dl (8.6-10.4) 08/06/18 06:46 Phosphorus 3.6 mg/dL (2.5-4.5) 08/06/18 06:46 Magnesium 2.0 mg/dL (1.6-2.3) 08/06/18 06:46 Total Bilirubin 1.2 mg/dL (0.2-1.3) 08/06/18 06:46 AST 20 U/L (17-59) 08/06/18 06:46 ALT 17 U/L (21-72) L 08/06/18 06:46 Alkaline Phosphatase 49 U/L (38-126) 08/06/18 06:46 Total Creatine Kinase 37 U/L (55-170) L 08/04/18 13:37 CK-MB (Mass) 0.25 ng/mL (0.0-3.38) 08/04/18 13:37 Troponin I < 0.0120 ng/mL (0.00-0.120) 08/05/18 01:37 C-React Prot High Sens 2.74 mg/L (1.00-3.00) 08/06/18 10:40 NT-Pro-B Natriuret Pep 68.1 pg/mL (0-450) 08/05/18 06:53 Total Protein 7.5 g/dL (6.3-8.3) 08/06/18 06:46 Albumin 3.9 g/dL (3.5-5.0) 08/06/18 06:46 Globulin 3.6 gm/dL (2.2-3.9) 08/06/18 06:46 Albumin/Globulin Ratio 1.1 (1.0-2.1) 08/06/18 06:46 Triglycerides 54 mg/dL (0-149) D 08/06/18 06:46 Cholesterol 163 mg/dL (0-199) 08/06/18 06:46 LDL Cholesterol Direct 87 mg/dL (0-129) 08/06/18 06:46 HDL Cholesterol 57 mg/dL (30-70) 08/06/18 06:46 Urine Opiates Screen Negative (NEGATIVE) 08/04/18 14:57 Urine Methadone Screen Negative (NEGATIVE) 08/04/18 14:57 Ur Barbiturates Screen Negative (NEGATIVE) 08/04/18 14:57 Ur Phencyclidine Scrn Negative (NEGATIVE) 08/04/18 14:57 Ur Amphetamines Screen Negative (NEGATIVE) 08/04/18 14:57 U Benzodiazepines Scrn Negative (NEGATIVE) 08/04/18 14:57 U Oth Cocaine Metabols Negative (NEGATIVE) 08/04/18 14:57 U Cannabinoids Screen Negative (NEGATIVE) 08/04/18 14:57 Blood Type O POSITIVE 08/04/18 13:37 Antibody Screen Negative 08/04/18 13:37 Attending/Attestation - Attestation I have personally seen and examined this patient.: Yes I have fully participated in the care of the patient.: Yes I have reviewed all pertinent clinical information, including history, physical exam and plan: Yes Notes (Text): 08/06/18 17:04 Medical attending: Patient was seen and examined by me. Agree with the above note by the resident. Patient was seen and examined together The patient as mentioned previously completed the echo as well as stress test. On exam he was ambulating fine and was able to walk in the hallway without issue. Will discharge now but considering the MVP he needs follow up and periodically should have echos done to follow up on the MVP Christopher Pavon
[2018-08-06 16:36] VITALS: BP 117/80; TEMP 98
[2018-08-06 16:48] VITALS: PULSE 99
--- NOTE | 2018-08-06 21:24 | CARD ---
APPROVED REPORT Date of service: 08/04/2018 EKG Measurement Heart [id number] MN [id number] <Conclusion> Normal sinus rhythm with sinus arrhythmia Early repolarization Normal ECG
--- NOTE | 2018-08-06 21:29 | CARD ---
APPROVED REPORT Date of service: 08/04/2018 EKG Measurement Heart [id number] PA [id number] <Conclusion> Normal sinus rhythm Early repolarization changes Nonspecific T wave changes Please repeat Abnormal ECG
--- NOTE | 2018-08-06 21:31 | CARD ---
APPROVED REPORT Date of service: 08/04/2018 EKG Measurement Heart [id number] [place] 156P83 [id number] <Conclusion> PROMINENT BASELINE ARTIFACT PLEASE REPEAT Probably Normal sinus rhythm
== END 2018-08-06 18:31 | disposition home or self-care (01) | DRG 198 ==
LOC: C.ER 13:25 → C.9E 13:36 → C.6T 18:44
PROVIDERS: ADMIT Hospitalist; ATTEND Hospitalist
DX: I20.0 Unstable angina (principal); I08.1 Rheumatic disorders of both mitral and tricuspid valves; I27.20 Pulmonary hypertension, unspecified; J45.30 Mild persistent asthma, uncomplicated; B35.4 Tinea corporis; Z80.6 Family history of leukemia; Z79.82 Long term (current) use of aspirin

== ENCOUNTER 2018-11-02 17:07 | Emergency (ER) | payer OTHER ==
[2018-11-02 17:08] VITALS: BMI 17.9
[2018-11-02 17:29] VITALS: TEMP 98.7; O2SAT 98
--- NOTE | 2018-11-02 18:29 | RAD ---
PROCEDURE: Radiographs of the right humerus. HISTORY: apper arm pain COMPARISON: None. FINDINGS: BONES: No acute fracture or destructive bony lesion identified. SOFT TISSUES: Normal. OTHER FINDINGS: None. IMPRESSION: Unremarkable radiographs of right humerus.
[2018-11-02 18:35] LABS: BASO # 0.1 K/uL (0.0-0.2); BASO % 0.6 % (0.0-2.0); EOS # 0.2 K/uL (0.0-0.7); EOS % 2.3 % (0.0-4.0); LYMPH # 1.6 K/uL (1.0-4.3); LYMPH % 19.6 % (20.0-40.0); MEAN CORPUSCULAR HEMOGLOBIN 30.7 pg (27.0-31.0); MEAN CORPUSCULAR HGB CONC 33.8 g/dL (33.0-37.0); MEAN PLATELET VOLUME 7.8 fL (7.2-11.7); MONO # 0.6 K/uL (0.0-0.8); MONO % 7.4 % (0.0-10.0); NEUT # 5.7 K/uL (1.8-7.0); NEUT % 70.1 % (50.0-75.0); NRBC % 0.1 % (0.0-2.0); RBC 4.9 Mil/uL (4.40-5.90); RED CELL DISTRIBUTION WIDTH 13.4 % (11.5-14.5); WHITE BLOOD COUNT 8.1 K/uL (4.8-10.8)
[2018-11-02 18:39] LABS: MEAN CELL VOLUME 90.9 fL (80.0-94.0)
[2018-11-02 18:44] LABS: INR 1.3; PROTHROMBIN TIME 13.9 SECONDS (9.7-12.2)
[2018-11-02 18:45] LABS: D DIMER < 200 ng/mlDDU (0-243); PARTIAL THROMBOPLASTIN TIME 33 SECONDS (21-34)
[2018-11-02 18:49] LABS: ALB/GLOB RATIO 1.2 (1.0-2.1); ALBUMIN 4.3 g/dL (3.5-5.0); ALT/SGPT 16 U/L (21-72); AST/SGOT 21 U/L (17-59); BLOOD UREA NITROGEN 22 mg/dL (9-20); CALCIUM 9.5 mg/dl (8.6-10.4); GFR NON-AFRICAN AMERICAN > 60
--- NOTE | 2018-11-02 19:13 | C.PDOC ---
History Of Present Illness 43 y/o male comes in complaining of right upper arm pain x9 days. Patient reports he doesnt remember injuring his arm. 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 He has no other complaints at this time. Time Seen by Provider: 11/02/18 17:32 Chief Complaint (Nursing): Upper Extremity Problem/Injury History Per: Patient History/Exam Limitations: no limitations Onset/Duration Of Symptoms: Days Current Symptoms Are (Timing): Still Present Past Medical History Reviewed: Historical Data, Nursing Documentation, Vital Signs Vital Signs: Last Vital Signs Temp 98.7 F 11/02/18 17:27 Pulse 76 11/02/18 17:27 Resp 18 11/02/18 17:27 BP 121/76 11/02/18 17:27 Pulse Ox 98 11/02/18 17:27 - Medical History PMH: Asthma Denies: Chronic Kidney Disease Family History: States: No Known Family Hx - Social History Hx Tobacco Use: No Hx Alcohol Use: No Hx Substance Use: No - Immunization History Hx Tetanus Toxoid Vaccination: No Hx Influenza Vaccination: Yes Hx Pneumococcal Vaccination: No Review Of Systems Except As Marked, All Systems Reviewed And Found Negative. Constitutional: Negative for: Fever, Chills Cardiovascular: Negative for: Chest Pain Respiratory: Negative for: Shortness of Breath Musculoskeletal: Positive for: Arm Pain (Right upper arm) Skin: Negative for: Rash Neurological: Negative for: Weakness, Numbness Physical Exam - Physical Exam Appears: Non-toxic, No Acute Distress Skin: Warm, Dry Head: Atraumatic, Normacephalic Eye(s): bilateral: Normal Inspection Oral Mucosa: Moist Neck: Supple Extremity: Tenderness (to right upper arm, no swelling or erythema), Capillary Refill (less than 2 seconds), No Deformity Extremity: Bilateral: Normal ROM Pulses: Right Radial: Normal Neurological/Psych: Oriented x3, Normal Speech, Normal Motor, Normal Sensation ED Course And Treatment - Laboratory Results Result Diagrams: 11/02/18 18:26 11/02/18 18: Lab Results: PT 13.9 SECONDS (9.7-12.2) H 11/02/18 18: INR 1.3 11/02/18 18: APTT 33 SECONDS (21-34) 11/02/18 18: D-Dimer, Quantitative < 200 ng/mlDDU (0-243) 11/02/18 18:26 Total Bilirubin 0.9 mg/dL (0.2-1.3) 11/02/18 18:26 AST 21 U/L (17-59) 11/02/18 18:26 ALT 16 U/L (21-72) L 11/02/18 18:26 Alkaline Phosphatase 63 U/L (38-126) 11/02/18 18:26 Total Protein 7.8 g/dL (6.3-8.3) 11/02/18 18:26 Albumin 4.3 g/dL (3.5-5.0) 11/02/18 18:26 Globulin 3.5 gm/dL (2.2-3.9) 11/02/18 18: Albumin/Globulin Ratio 1.2 (1.0-2.1) 11/02/18 18:26 O2 Sat by Pulse Oximetry: 98 (RA) Pulse Ox Interpretation: Normal - Other Rad Humerus XR X-Ray: Read By Radiologist Interpretation: FINDINGS: BONES: No acute fracture or destructive bony lesion identified. . SOFT TISSUES: Normal. OTHER FINDINGS: None. IMPRESSION: Unremarkable radiographs of right humerus. Progress Note: Labs and right humerus XR ordered and reviewed. D-dimer sent which was negative. Patient was given motrin and discharged home. Instructed patient to follow up with orthopedist for further evaluation. Disposition - Disposition Referrals: Baudilio Farley MD [Staff Provider] - Disposition: HOME/ ROUTINE Disposition Time: 20:04 Condition: STABLE Additional Instructions: Follow up with PMD and Orthopedist within 1-2 days. Return to ED if feel worse. Prescriptions: Ibuprofen [Motrin Tab] 600 mg PO Q8 #30 tab Instructions: Muscle and Bone Pain (DC) Forms: [facility] (Czech) - Clinical Impression Clinical Impression: Arm pain - PA / CAR SUPPLIER / Resident Statement MD/DO has reviewed & agrees with the documentation as recorded. - Scribe Statement The provider has reviewed the documentation as recorded by the Scribe Janay Lorenz All medical record entries made by the Scribe were at my direction and personally dictated by me. I have reviewed the chart and agree that the record accurately reflects my personal performance of the history, physical exam, medical decision making, and the department course for this patient. I have also personally directed, reviewed, and agree with the discharge instructions and disposition.
[2018-11-02 20:15] VITALS: BP 119/78; PULSE 69; RESP 16
== END 2018-11-02 20:15 | disposition home or self-care (01) ==
LOC: C.ER 17:07
DX: M79.621 Pain in right upper arm (principal)

== ENCOUNTER 2018-11-15 11:49 | Emergency (ER) | payer OTHER ==
[2018-11-15 11:49] VITALS: BMI 17.9
[2018-11-15 11:54] VITALS: RESP 18
[2018-11-15] MEDS ORDERED: Albuterol-Ipratrop 3 mg / 0.5 (3 ml) UD INH STA (12:39)
[2018-11-15] MEDS ORDERED: Albuterol-Ipratrop 3 mg / 0.5 (3 ml) UD ONE (12:43)
--- NOTE | 2018-11-15 12:59 | RAD ---
Date of service: 11/15/2018 HISTORY: cough fever asthma, dec bs COMPARISON: 08/04/2018 TECHNIQUE: Chest PA and lateral FINDINGS: LUNGS: No active pulmonary disease. PLEURA: No significant pleural effusion identified. No pneumothorax apparent. CARDIOVASCULAR: No aortic atherosclerotic calcification present. Normal cardiac size. No pulmonary vascular congestion. OSSEOUS STRUCTURES: No significant abnormalities. VISUALIZED UPPER ABDOMEN: Normal. OTHER FINDINGS: None. IMPRESSION: No active disease.
--- NOTE | 2018-11-15 13:00 | C.PDOC ---
History Of Present Illness 43 y/o male pt with hx of asthma and MVP presents to the ER c/o flu-like sx for x5 days. Associated sx includes cough, sore throat and myalgia. Pt reports he occasionally takes 500 mg Tylenol with no improvement. Pt notes he got his flu vaccine and denies any sick contact. Pt has no other associated sx or complaints at this time. Time Seen by Provider: 11/15/18 12:14 Chief Complaint (Nursing): Flu-like Symptoms History Per: Patient History/Exam Limitations: no limitations Onset/Duration Of Symptoms: Days (x5) Current Symptoms Are (Timing): Still Present Past Medical History Reviewed: Historical Data, Nursing Documentation, Vital Signs Vital Signs: Last Vital Signs Temp 99.3 F 11/15/18 11:52 Pulse 90 11/15/18 11:52 Resp 18 11/15/18 11:52 BP 112/77 11/15/18 11:52 Pulse Ox 100 11/15/18 11:52 - Medical History PMH: Asthma Family History: States: Unknown Family Hx - Social History Hx Tobacco Use: No Hx Alcohol Use: No Hx Substance Use: No - Immunization History Hx Tetanus Toxoid Vaccination: No Hx Influenza Vaccination: Yes Hx Pneumococcal Vaccination: No Review Of Systems Constitutional: Negative for: Fever, Other (sick contact ) Eyes: Negative for: Pain ENT: Positive for: Throat Pain Cardiovascular: Negative for: Chest Pain Respiratory: Positive for: Cough Gastrointestinal: Negative for: Nausea, Vomiting Musculoskeletal: Positive for: Other (myalgia ) Neurological: Negative for: Weakness, Numbness Physical Exam - Physical Exam Appears: Non-toxic, Other (uncomfortable ) Skin: Warm, Dry, No Rash Ear(s): Bilateral: Normal Oral Mucosa: Moist Throat: Erythema, No Exudate Chest: Symmetrical Cardiovascular: Rhythm Regular, No Murmur Respiratory: Decreased Breath Sounds (diffuse ), Other (poor effort ) Gastrointestinal/Abdominal: Bowel Sounds (normal ), Soft, No Tenderness, No Guarding, No Rebound Extremity: Normal ROM (x4), No Tenderness, No Pedal Edema, No Calf Tenderness, Capillary Refill (<2 sec), No Deformity, No Swelling Neurological/Psych: Oriented x3, Normal Speech, Normal Cognition ED Course And Treatment O2 Sat by Pulse Oximetry: 100 (RA) Pulse Ox Interpretation: Normal - Other Rad chest X-Ray: Read By Radiologist Interpretation: Accession No. : [id number]. Patient Name / ID : MARIELOS AVILES / [id number]. Exam Date : 11/15/2018 12:34:01 ( Approved ). Study Comment : Sex / Age : M / 43Y. Creator : Christopher Werner MD. Dictator : Christopher Werner MD. Copy Room Technician : Fish Icer : Christopher Werner MD. Approver2 : Report Date : 11/15/2018 12:55:55. My Comment : . Date of service: 11/15/2018. HISTORY: cough fever asthma, dec bs. COMPARISON: 08/04/2018. TECHNIQUE: Chest PA and lateral. FINDINGS: LUNGS: No active pulmonary disease. PLEURA: No significant pleural effusion identified. No pneumothorax apparent. CARDIOVASCULAR: No aortic atherosclerotic calcification present. Normal cardiac size. No pulmonary vascular congestion. OSSEOUS STRUCTURES: No significant abnormalities. VISUALIZED UPPER ABDOMEN: Normal. OTHER FINDINGS: None. IMPRESSION: No active disease. Medical Decision Making Medical Decision Making: Plans: -- throat cx -- rapid strep throat -- CXR -- albuterol -- ibuprofen [id number] pt with neg cxr, neg strep, 5 days of symptms, will not give tamiflu. f/u med clinic Disposition Counseled Patient/Family Regarding: Studies Performed, Diagnosis, Need For Followup, Rx Given - Disposition Referrals: Ramila Salazar MD [Staff Provider] - Disposition: HOME/ ROUTINE Disposition Time: 13:50 Condition: GOOD Additional Instructions: Drink increased fluids. Gargle with warm salty water several times a day. Take Tylenol (1000 mg) by mouth every 6 hours for pain or fever,.Allternate with motrin 600 mg. Follow up in medical clinic. Use inhaler as needed. Return to ER for any worse symptoms. Prescriptions: Ibuprofen [Motrin] 600 mg PO TID #30 tab Instructions: Flu, Adult (DC) Forms: [facility] (C[place]riot), General Discharge Instructions - Clinical Impression Clinical Impression: Influenza-like illness - PA / COAT BASTER / Resident Statement / has reviewed & agrees with the documentation as recorded. - Scribe Statement The provider has reviewed the documentation as recorded by the Scribe Paola Barragan All medical record entries made by the Scribe were at my direction and personally dictated by me. I have reviewed the chart and agree that the record accurately reflects my personal performance of the history, physical exam, medical decision making, and the department course for this patient. I have also personally directed, reviewed, and agree with the discharge instructions and disposition.
[2018-11-15 14:02] VITALS: BP 105/69; PULSE 68; TEMP 98.4; O2SAT 98
== END 2018-11-15 14:01 | disposition home or self-care (01) ==
LOC: C.ER 11:49
DX: J11.1 Influenza due to unidentified influenza virus with other respiratory manifestations (principal); J45.909 Unspecified asthma, uncomplicated

== ENCOUNTER 2019-01-07 13:26 | Outpatient (CLI) | payer OTHER | END 2019-01-07 13:27 | disposition home or self-care (01) | LOC: C.CARD 13:26 ==